=== PATIENT | female | born 1990 | race Caucasian/White ===

== ENCOUNTER → 2017-06-19 16:19 | Outpatient (CLI) | payer OTHER, SELFPAY ==
[2017-06-20 08:46] LABS: Progesterone Level 10.23 ng/mL (See Comment)
== END ==
PROVIDERS: Family Provider Family Medicine; PCP Family Medicine; Visit Provider Obstetrics & Gynecology
DX: N97.0 Female infertility associated with anovulation (principal)
CPT/HCPCS: 84144

== ENCOUNTER → 2017-06-30 09:53 | Outpatient (CLI) | payer OTHER, SELFPAY ==
[2017-06-30 11:36] LABS: hCG Titer Quant., Serum 67 mIU/mL (<9 non-preg)
== END ==
PROVIDERS: Visit Provider Obstetrics & Gynecology
DX: N91.2 Amenorrhea, unspecified (principal)
CPT/HCPCS: 36415; 84702

== ENCOUNTER → 2017-07-02 09:21 | Outpatient (CLI) | payer OTHER, SELFPAY ==
[2017-07-02 10:19] LABS: hCG Titer Quant., Serum 155 mIU/mL (<9 non-preg)
== END ==
PROVIDERS: Visit Provider Obstetrics & Gynecology
DX: N91.2 Amenorrhea, unspecified (principal)
CPT/HCPCS: 36415; 84702

== ENCOUNTER → 2017-07-04 09:44 | Outpatient (CLI) | payer OTHER, SELFPAY ==
[2017-07-04 12:14] LABS: hCG Titer Quant., Serum 321 mIU/mL (<9 non-preg)
== END ==
PROVIDERS: Visit Provider Obstetrics & Gynecology
DX: Z32.01 Encounter for pregnancy test, result positive (principal)
CPT/HCPCS: 36415; 84702

== ENCOUNTER → 2017-07-28 14:20 | Outpatient (CLI) | payer OTHER, SELFPAY ==
[2017-07-28 17:32] LABS: Chlamydia Trachomatis by PCR Negative (Negative); Neisserai gonorrhoeae by PCR Negative (Negative); Probe Check PASS; Sample Adequacy Control PASS; Specimen Processing Control PASS
== END ==
PROVIDERS: Visit Provider Obstetrics & Gynecology
DX: Z11.3 Encounter for screening for infections with a predominantly sexual mode of transmission (principal)
CPT/HCPCS: 87491; 87591

== ENCOUNTER → 2017-08-25 14:56 | Outpatient (CLI) | payer OTHER, SELFPAY ==
[2017-08-25 15:40] LABS: Color, Urine Yellow (Yellow); Glucose, Dipstick Normal (Normal); Ketone-Dipstick Negative (Negative); Leukocyte Esterase-Dipstick 25 /ul (Negative); Nitrite-Dipstick Negative (Negative); Occult Blood-Urine Negative /ul (Negative); Protein-Dipstick Negative (Negative); Urine Bilirubin Dipstick Negative (Negative); Urine Clarity Clear (Clear); Urine Urobilinogen Normal (Normal)
[2017-08-25 15:47] LABS: Absolute Lymphocyte Count 1.93 X10^3/ul (0.83-4.51); Basophil# 0.01 X10^3/uL; Basophil% 0.1 % (0-1); Eosinophil# 0.11 X10^3/uL; Eosinophils% 1.3 % (0-5); Hematocrit 38.3 % (37-47); Hemoglobin 13.1 g/dl (12.0-15.0); Lymphocyte # 1.93 X10^3/ul (4.0); Lymphocyte % 22.5 % (19-41); Mean Corp Hgb Conc 34.2 g/gl (32-36); Mean Corpuscular Hgb 28.4 pg (27.0-32.0); Mean Corpuscular Volume 82.9 fL (81-99); Mean Platelet Vol. 9.2 fl (6.2-12.0); Monocyte% 5.8 % (0-10); Neutrophil # 5.99 X10^3/uL (2.7-7.7); Neutrophil % 69.8 % (47-70); Platelet Count 285 K/mm3 (150-450); RBC Distribution Width CV 12.5 % (11.6-14.6); RBC Distribution Width SD 37.6 fl (35.1-43.9); Red Blood Count 4.62 M/mm3 (4.2-5.4); White Blood Count 8.6 K/mm3 (4.4-11.0)
[2017-08-25 15:49] LABS: POSITIVE COUNT NO; POSITIVE DIFFERENTIAL NO; POSITIVE MORPHOLOGY NO
[2017-08-25 16:16] LABS: Thyroid Stim Hormone (TSH) 0.36 uIU/mL (0.358-3.74)
[2017-08-25 16:23] LABS: Amphetamine Urine VISTA NEGATIVE (<1000 ng/mL); Barbiturate Urine VISTA NEGATIVE (< 200 ng/mL); Benzodiazepine Urine VISTA NEGATIVE (< 200 ng/mL); Cocaine Urine VISTA NEGATIVE (< 300 ng/mL); Ecstacy Urine VISTA NEGATIVE (< 500 ng/mL); Methadone Urine VISTA NEGATIVE (< 300 ng/mL); PCP Urine VISTA NEGATIVE (< 25 ng/mL); THC Urine VISTA NEGATIVE (< 50 ng/mL); Vista UDS pH Range 6
[2017-08-25 17:10] LABS: HIV - WCH Non-Reactive (Nonreactive); Rubella IgG 62.9 IU/mL
[2017-08-27 08:12] LABS: HEPATITIS B SURFACE AG Negative (Negative); Hep C Antibodies <0.1 s/co ratio (0.0-0.9)
[2017-08-29 02:34] LABS: Prenatal RPR NONREACTIVE (NONREACTIVE)
== END ==
PROVIDERS: Visit Provider Obstetrics & Gynecology
DX: Z34.81 Encounter for supervision of other normal pregnancy, first trimester (principal)
CPT/HCPCS: 36415; 80307; 81002; 84443; 85025; 86703; 86762; 86803; 87340

== ENCOUNTER 2017-12-12 15:10 | Outpatient (CLI) | payer OTHER, SELFPAY ==
[2017-12-12 15:31] VITALS: BMI 40.0
--- NOTE | 2017-12-12 23:09 | OB.TRI.NOTE ---
History of Present Illness Date of Service: 12/12/17 Was patient seen by the physician?: No Reason For Visit: MONITORING FOR FALL Date of Service: 12/12/17 Final ЕКАТЕРИНА: 03/12/18 Gestational age: 27 Weeks and 1 Days History of Present Illness: 27+ week intrauterine status post fall at home on her right buttocks. Good movement after the fall. Did not hit the abdomen. Denies any vaginal bleeding or contractions. After several hours had problems with some right lower abdominal discomfort. Allergies codeine Adverse Reaction (Verified 03/24/17 01:50) Other naproxen Adverse Reaction (Verified 03/24/17 01:50) Nausea NST - FHR Rate Baby A Decelerations:: None NST Reactive:: Appropriate for gestational age Uterine Activity:: None Impression/Plan 27 week intrauterine status post fall and monitoring for several hours. Reassuring heart tones. Patient's blood type is B- so RhoGam was given after a maternal hemoglobin screen and antibody screen was drawn. After monitoring no contractions were noted and it was felt it was safe to discharge the patient home. She was instructed to use Tylenol as needed for right round ligament pain.
== END 2017-12-12 18:45 | disposition home or self-care (01) ==
LOC: WPOUT 15:17 → WP 15:17
PROVIDERS: Family Provider Family Medicine; PCP Family Medicine; Visit Provider Obstetrics & Gynecology
DX: O26.892 Other specified pregnancy related conditions, second trimester (principal); Z04.3 Encounter for examination and observation following other accident
CPT/HCPCS: 59025; 59050; 85461; 86850; 86900; 90384; 96372; 99218; G0378; J2790

== ENCOUNTER → 2017-12-17 09:48 | Outpatient (CLI) | payer OTHER, SELFPAY ==
[2017-12-17 10:44] LABS: Hematocrit 36.6 % (37-47); Hemoglobin 12.4 g/dl (12.0-15.0); Mean Corp Hgb Conc 33.9 g/gl (32-36); Mean Corpuscular Volume 85.5 fL (81-99); Mean Platelet Vol. 9.4 fl (6.2-12.0); Platelet Count 239 K/mm3 (150-450); RBC Distribution Width CV 13.1 % (11.6-14.6); RBC Distribution Width SD 40.7 fl (35.1-43.9); Red Blood Count 4.28 M/mm3 (4.2-5.4); White Blood Count 8.5 K/mm3 (4.4-11.0)
[2017-12-17 10:48] LABS: Scan Indicated on CBC? Y/N NO
[2017-12-17 10:55] LABS: Glucose Challenge Gest 1H 50g 136 mg/dL (70-140)
== END ==
PROVIDERS: Visit Provider Obstetrics & Gynecology
DX: Z34.82 Encounter for supervision of other normal pregnancy, second trimester (principal)
CPT/HCPCS: 36415; 82950; 85027

== ENCOUNTER 2018-02-10 07:45 | Outpatient (CLI) | payer OTHER, SELFPAY ==
[2018-02-10 08:23] VITALS: BMI 43.8
[2018-02-10 08:25] LABS: ROM Internal Control Test YES-OK TO RESULT pt. (Internal QC)
[2018-02-10 08:26] LABS: ROM Patient Test Negative (Negative)
--- NOTE | 2018-02-10 13:01 | OB.TRI.NOTE ---
History of Present Illness Date of Service: 02/10/18 Was patient seen by the physician?: Yes Reason For Visit: RULE OUT RUPTURE Date of Service: 02/10/18 Final ЕКАТЕРИНА: 03/10/18 Final ЕКАТЕРИНА Source: US <20 weeks Gestational age: 36 Weeks and 0 Days History of Present Illness: 28 yo female. Called in with ? SROM. presents for evaluation after ? SROM. States some trickling and some cramping. 36 wk. prior C/S. Advised to come in for evaluation Allergies codeine Adverse Reaction (Verified 02/10/18 08:25) Other CONSTIPATION naproxen Adverse Reaction (Verified 02/10/18 08:25) Nausea Physical Exam General: Alert, Oriented x3, Cooperative, No apparent distress HEENT: Atraumatic Abdomen: Soft, Gravid - ROM test negative. NST - FHR Rate Baby A Baseline: 130-140 very active FM. Intermittent tracing 2/2 movement. Variability:: Moderate Accelerations:: 15 x 15 Decelerations:: None NST Reactive:: Yes, Appropriate for gestational age FHR Category:: Category I Uterine Activity:: No UCs noted. Impression/Plan 36 wk false labor home. Keep next PNV as planned
== END 2018-02-10 08:40 | disposition home or self-care (01) ==
LOC: WPOUT 07:49 → WP 07:49
PROVIDERS: Family Provider Family Medicine; PCP Family Medicine; Visit Provider Obstetrics & Gynecology
DX: O47.03 False labor before 37 completed weeks of gestation, third trimester (principal); Z3A.36 36 weeks gestation of pregnancy
CPT/HCPCS: 59025; 59050; 84112; 99218; G0378

== ENCOUNTER → 2018-02-18 16:51 | Outpatient (CLI) | payer OTHER, SELFPAY ==
[2018-02-18 17:20] LABS: International Normalized Ratio 0.9; Prothrombin Time (Protime)PT. 12.4 SECONDS (11.7-14.9)
[2018-02-18 17:21] LABS: Partial Thromboplast Time 25.8 Seconds (24.1-36.2)
[2018-02-18 17:24] LABS: AST(SGOT) 14 U/L (15-37); Alanine Aminotransfer ALT/SGPT 14 U/L (13-56); Creatinine, Serum 0.71 mg/dL (0.55-1.02); EST Glomerular Filtration Rate 103 mL/min (>60); Est Glom Filt Rate - Afr Amer 124 mL/min (>60); Uric Acid 2.2 mg/dL (2.6-6.0)
[2018-02-18 17:41] LABS: Hematocrit 38.8 % (37-47); Hemoglobin 13.1 g/dl (12.0-15.0); Mean Corp Hgb Conc 33.8 g/gl (32-36); Mean Corpuscular Hgb 28.5 pg (27.0-32.0); Mean Corpuscular Volume 84.5 fL (81-99); Mean Platelet Vol. 10.6 fl (6.2-12.0); Platelet Count 239 K/mm3 (150-450); RBC Distribution Width CV 13.4 % (11.6-14.6); RBC Distribution Width SD 40.8 fl (35.1-43.9); Red Blood Count 4.59 M/mm3 (4.2-5.4); White Blood Count 8.7 K/mm3 (4.4-11.0)
[2018-02-18 18:05] LABS: Scan Indicated on CBC? Y/N NO
[2018-02-18 20:22] LABS: Group B Strep DNA By PCR Negative (Negative); Internal Control PASS; Probe Check PASS; Specimen Processing Control PASS
== END ==
PROVIDERS: Visit Provider Obstetrics & Gynecology
DX: O13.9 Gestational [pregnancy-induced] hypertension without significant proteinuria, unspecified trimester (principal); Z36.85 Encounter for antenatal screening for Streptococcus B
CPT/HCPCS: 36415; 82565; 84450; 84460; 84550; 85027; 85610; 85730; 87081; 87653

== ENCOUNTER 2018-02-23 18:25 | Inpatient (IN) | payer OTHER, SELFPAY ==
[2018-02-23] VITALS (10 sets, daily range): BP systolic 111–149; BP diastolic 48–88; PULSE 58–78; RESP 12–19; TEMP 35.9–36.4; O2SAT 95–100; BMI 45.1
[2018-02-23] MEDS: Lactated Ringers 1,000 ML 100 ML IV ×2 (17:00→21:40)
[2018-02-23] MEDS: Lactated Ringers 1,000 ML 999 ML IV (18:30)
[2018-02-23 18:43] LABS: Absolute Lymphocyte Count 2.11 X10^3/ul (0.83-4.51); Absolute Neutrophil Count 6.1 X10^3/uL (2.0-7.7); Basophil# 0.02 X10^3/uL; Basophil% 0.2 % (0-1); Eosinophil# 0.04 X10^3/uL; Eosinophils% 0.4 % (0-5); Hematocrit 39.7 % (37-47); Hemoglobin 13.4 g/dl (12.0-15.0); Lymphocyte # 2.11 X10^3/ul (4.0); Lymphocyte % 23.4 % (19-41); Mean Corp Hgb Conc 33.8 g/gl (32-36); Mean Corpuscular Hgb 28.6 pg (27.0-32.0); Mean Corpuscular Volume 84.6 fL (81-99); Mean Platelet Vol. 10.9 fl (6.2-12.0); Monocyte# 0.75 X10^3/uL; Monocyte% 8.3 % (0-10); Neutrophil # 6.07 X10^3/uL (2.7-7.7); Neutrophil % 67.5 % (47-70); POSITIVE COUNT NO; POSITIVE DIFFERENTIAL NO; POSITIVE MORPHOLOGY NO; Platelet Count 244 K/mm3 (150-450); RBC Distribution Width CV 13.5 % (11.6-14.6); RBC Distribution Width SD 40.9 fl (35.1-43.9); Red Blood Count 4.69 M/mm3 (4.2-5.4)
[2018-02-23] MEDS: Sodium Citrate/Citric Acid 30 ML UDC PO (18:50)
[2018-02-23] MEDS: Oxytocin 30 units/NS 500 ml 30 UNITS/500 ML IV.SOLN 167 UNITS IV (19:39)
--- NOTE | 2018-02-23 20:18 | PCM.OP.BLANK ---
Operative Report Date of Procedure: 02/23/18 Surgeon: Ankit Christensen MD, FACOG Licensed Vocational Nurse: ISAC Lew Anesthesia: Salbador Herman CRNA Anesthesia: Spinal with Duramorph Pre-op Diagnosis: Prior Section, Nonreassuring Heart Tones, Polyhydramnios, Suspected Macrosomia Post-Op Diagnosis: Prior Section, Nonreassuring Heart Tones, Polyhydramnios, Macrosomia Procedure: Repeat Low Transverse Cervical Caesarean Section Findings: Viable male with Apgars of 6/9 in occiput anterior presentation with copious amounts of clear amniotic fluid and normal three-vessel placenta. Baby weighed 9 pounds 12 ounces. Indication: This is a 28-year-old who presents for her second at 37weeks 4 days weeks gestation. care has been eventful for polyhydramnios and large for gestational age baby. Recent nonstress testing has been nonreassuring. In fact, this evening we were unable to do a contraction stress test due to periods of minimal variability and suspected late decelerations. Given this it was decided to proceed with section this evening. The patient has been counseled regarding the risk and indications of this procedure including the possibility of bleeding infection and injury to surrounding structures such as bowel bladder. All questions were answered. Procedure: Patient was taken to the operating room where after spinal anesthesia was placed, the patient was prepped and draped in usual sterile fashion and a Vogel catheter was placed. The abdomen was entered through the patient's prior Pfannenstiel incision and peritoneum was entered bluntly. After developing a bladder flap on the lower uterine segment a low transverse incision was made on the uterus and head was easily delivered onto the operative field the nose mouth and oropharynx were bulb suctioned. Subsequently a viable male was born with Apgars of 6/9. The was noted to cry move all extremities vigorously on the operative field. The umbilical cord was doubly clamped and ligated and handed to the nursery personnel including Dr. Mullins from Pediatrics who was present for the delivery. Placenta was delivered and noted to be 3 vessels and normal. Uterus was exteriorized and remaining placental tissue was removed. The uterus was then closed in 2 layers first with running locked 0 Vicryl suture followed by a second imbricating layer with 0 Vicryl suture. 0 Vicryl suture was then used in a horizontal mattress interrupted fashion to affect final hemostasis of the uterine incision line. Normal fallopian tubes and ovaries were visualized and the uterus was returned to the pelvis. Hemostasis was noted and rectus abdominis muscles were reapproximated in the midline with interrupted Number 0 Vicryl suture in a horizontal mattress fashion. Fascia was closed with running Number 1 PDS Strata fix suture. Subcutaneous tissue was irrigated with copious amouts of saline solution and then closed with running 3-0 Vicryl suture. Skin was closed with 4-0 monocryl suture in a running subcuticular fashion. Steri strips, telfa, and tape were placed across the incision. The patient tolerated the procedure well and was taken to the recovery room in satisfactory condition. Sponge, needle, and instrument counts were all reportedly correct. EBL was less than 500 cc. Ancef 3 g IV was given prior to the procedure. Specimen to Pathology: None Complications: None
--- NOTE | 2018-02-23 20:25 | DCINST_ITS ---
Discharge Diet: No Restrictions Discharge Activity: May not drive while taking narcotic pain medications., May Shower, May Take a Tub Bath May resume sexual activity in: 4-6 weeks Lifting Restrictions: 20 pounds Additional Activity Instructions:: Nothing in the vagina for 4-6 weeks. You may return to work/school in 6 weeks. Call your doctor if your incision/area has: Continuous Slow Oozing, Sudden Increased Bleeding, Increased Pain/ Swelling, Increased Redness, Foul Smelling Discharge Call your doctor if you observe: Fever of 101 or Higher, Inability to urinate, Inability to have a bowel movement, Using more than one pad per hour Additional Instructions: If you experience any of the following, contact your healthcare provider. * Bleeding that soaks a pad every hour for 2 hours * Unrelieved incision or abdominal pain * Swelling, redness, discharge or bleeding from your incision or episiotomy site * Your incision begins to separate * Problems urinating (including inability to urinate or burning while urinating). * Visual changes * Severe headache * Flu-like symptoms * Pain or redness in one of both of your breasts * Pain, warmth, tenderness or swelling in your legs, especially the calf area * Frequent nausea and vomiting * Symptoms of depression or anxiety If you experience any of the following, call 911 or go to the nearest Emergency Room. * Chest pain * Problems breathing * Seizure activity * Partial or complete paralysis of a body part, slurred speech, weakness or drooping of the face, or a sudden inability to walk or hold your balance Allergies/Adverse Reactions: Allergies codeine Adverse Reaction (Verified 02/23/18 16:50) Other CONSTIPATION naproxen Adverse Reaction (Verified 02/23/18 16:50) Nausea Medications to take at Discharge Vits [Prenatabs FA ] 1 tablet PO DAILY 04/20/13 Docusate Sodium [Colace] 100 mg PO BID PRN PRN #60 cap 02/23/18 Oxycodone [Oxyir] 5 mg PO Q6H PRN PRN 7 Days #20 tab 02/23/18 The following prescriptions were given: Oxycodone [Oxyir] 5 mg PO Q6H PRN PRN 7 Days #20 tab PRN Reason: Severe Pain (-03/04) Docusate Sodium [Colace] 100 mg PO BID PRN PRN #60 cap PRN Reason: Constipation Follow-Up: Call to make an appointment with your doctor for an incision check in 1-2 weeks. You will also need a 6 week post- follow up appointment. Test results from this visit will be discussed in further detail at your follow-up appointment, if applicable. Please Follow Up With: Ankit Christensen MD - [phone] When: Call to make an appointment for an incision check in 2 weeks.
[2018-02-24] VITALS (11 sets, daily range): BP systolic 106–129; BP diastolic 60–74; PULSE 61–88; RESP 14–20; TEMP 36.2–36.9; O2SAT 96–100
[2018-02-24] MEDS: Ketorolac 30 MG/ML Syringe IV ×4 (02:40→20:04)
--- NOTE | 2018-02-24 03:05 | NURSING ---
0300 Called JW to update him on patient's HR dropping to 40's sporadically throughout recovery period; this RN informed him that there are no apparent triggers and that her HR has dropped when she is alert and when she is resting, that it will remain in 40's for anywhere from 5-30 seconds and that patient is asymptomatic other then feeling it pulse in my neck; bleeding and fundus is appropriate, other VS WNL and patient denies any other symptoms; JW stated to continue to monitor and that it can be a side effect of duramorph; JW denied any further orders at this time and this RN verbalized understanding.
[2018-02-24] MEDS: Cefazolin 1 GM/50 ML BAG IV ×2 (04:25→12:00)
[2018-02-24 05:30] LABS: Hematocrit 35.1 % (37-47); Hemoglobin 11.9 g/dl (12.0-15.0); Mean Corp Hgb Conc 33.9 g/gl (32-36); Mean Corpuscular Hgb 28.8 pg (27.0-32.0); Mean Platelet Vol. 10.4 fl (6.2-12.0); Platelet Count 202 K/mm3 (150-450); RBC Distribution Width CV 13.3 % (11.6-14.6); RBC Distribution Width SD 40.5 fl (35.1-43.9); Red Blood Count 4.13 M/mm3 (4.2-5.4); White Blood Count 12.9 K/mm3 (4.4-11.0)
[2018-02-24 05:36] LABS: Scan Indicated on CBC? Y/N NO
--- NOTE | 2018-02-24 08:23 | PCM.PN.OB ---
Subjective: POD#1 Repeat C/S nonreassuring FHT Doing well baby 9 # 12 oz. States pain control ok. no concerns voiced. - Physical Exam General: Alert, Oriented x3, Cooperative, No apparent distress HEENT: Atraumatic Neck: Supple Abdomen: Soft - Fundus firm NT at 1-2 cm inferior to umbilicus Skin: Incision - CDI. Dressing intact. Some faint erythema superior to incision extending up to umbilicus in pattern distribution ? due to retraction straps used / tape. Neurological: Cranial nerves II-XII grossly intact Psych/Mental Status: Normal Affect Vital Signs Temp Pulse Resp BP Pulse Ox 98.1 F 65 18 117/69 98 02/24/18 04:45 02/24/18 06:16 02/24/18 06:16 02/24/18 04:45 02/24/18 06:16 Oxygen Delivery Method Room Air Weight: 142.7 kg Body Mass Index (BMI) 45.1 Intake and Output for Last 24 Hours 02/22/18 02/23/18 02/24/18 23:59 23:59 23:59 Intake Total 3329 / 3329 2053 / 2053 Output Total 100 / 100 600 / 600 Balance 3229 / 3229 1453 / 1453 Laboratory Tests Past 24 Hrs 02/23/18 02/23/18 02/24/18 17:00 17:00 05:15 WBC 9.0 12.9 H RBC 4.69 4.13 L Hgb 13.4 11.9 L Hct 39.7 35.1 L MCV 84.6 85.0 MCH 28.6 28.8 MCHC 33.8 33.9 RDW 13.5 13.3 RDW Differential 40.9 40.5 Plt Count 244 202 MPV 10.9 10.4 Immature Gran % (Auto) 0.200 Neut % (Auto) 67.5 Lymph % (Auto) 23.4 [place] % (Auto) 8.3 Eos % (Auto) 0.4 Baso % (Auto) 0.2 Absolute Neuts (auto) 6.1 Absolute Lymphs (auto) 2.11 Total Counted Not Reportable Blood Type B NEGATIVE Antibody Screen NEGATIVE Medical Necessity - Tobacco Use Smoking Status: Never smoker Assessment/Plan POD#1 Repeat C/S Stable postop. Inc diet and activity as tolerated. May shower. D/C lima for voiding trial later today. S/L IV for continued Toradol. Continue care.
[2018-02-24] MEDS: Senna/Docusate Sodium 1 Tablet PO (08:31)
[2018-02-24] MEDS: 0.9% Saline Lock 10 ML Syringe IV ×2 (15:22→20:04)
[2018-02-25] MEDS: Ketorolac 30 MG/ML Syringe IV ×3 (02:30→14:00)
[2018-02-25] MEDS: 0.9% Saline Lock 10 ML Syringe IV ×3 (02:31→14:00)
[2018-02-25 04:30] VITALS: BP 121/72; PULSE 81; RESP 15; TEMP 36.7; O2SAT 97
[2018-02-25 08:10] VITALS: BP 132/77; PULSE 77; RESP 16; TEMP 36.4; O2SAT 97
--- NOTE | 2018-02-25 09:34 | PN.OBGYN_ITS ---
Subjective: Patient without complaints. Tolerating diet well. Positive flatus. Breast- feeding going well. Baby's blood sugars better controlled today. - Physical Exam Vital Signs Temp Pulse Resp BP Pulse Ox 97.5 F L 77 16 132/77 H 97 02/25/18 08:10 02/25/18 08:10 02/25/18 08:10 02/25/18 08:10 02/25/18 08:10 Oxygen Delivery Method Room Air Weight: 314 lb 9.594 oz Body Mass Index (BMI) 45.1 Intake and Output for Last 24 Hours 02/23/18 02/24/18 02/25/18 23:59 23:59 23:59 Intake Total 3329 / 3329 3 / 205 Output Total 100 / 100 2600 / 2600 Balance 3229 / 3229 -547 / -547 Wound is clean, dry, intact. Good urine output. Medical Necessity - Tobacco Use Smoking Status: Never smoker Assessment/Plan Doing well. Continuing present care.
[2018-02-25] MEDS: Senna/Docusate Sodium 1 Tablet PO (10:17)
[2018-02-25 16:15] VITALS: BP 128/77; PULSE 88; RESP 16; TEMP 36.4; O2SAT 98
[2018-02-25 20:01] VITALS: BP 117/75; PULSE 84; RESP 16; TEMP 36.9; O2SAT 98
[2018-02-25] MEDS: Ibuprofen 600 MG Tablet PO (20:20)
[2018-02-25] MEDS: Acetaminophen 500 MG Tablet 1000 MG PO (21:52)
[2018-02-26 01:30] VITALS: BP 133/74; PULSE 74; RESP 16; TEMP 36.9; O2SAT 97
[2018-02-26] MEDS: Ibuprofen 600 MG Tablet PO ×3 (02:31→15:46)
[2018-02-26] MEDS: Acetaminophen 500 MG Tablet 1000 MG PO ×2 (06:29→14:20)
[2018-02-26 08:01] VITALS: BP 127/71; PULSE 68; RESP 15; TEMP 36.4
--- NOTE | 2018-02-26 09:12 | PN.OBGYN_ITS ---
Subjective: Patient without complaints. Tolerating diet well. Positive flatus. Breast- feeding going well but is pumping. Baby's blood sugars have stabilized. - Physical Exam Vital Signs Temp Pulse Resp BP Pulse Ox 97.6 F L 68 15 127/71 H 97 02/26/18 08:01 02/26/18 08:01 02/26/18 08:01 02/26/18 08:01 02/26/18 01:30 Oxygen Delivery Method Room Air Weight: 314 lb 9.594 oz Body Mass Index (BMI) 45.1 Intake and Output for Last 24 Hours 02/24/18 02/25/18 02/26/18 23:59 23:59 23:59 Intake Total 2052 / 2052 Output Total 2600 / 2600 Balance -547 / -547 Medical Necessity - Tobacco Use Smoking Status: Never smoker Assessment/Plan Doing well postoperative day #2 status post repeat . Continuing present care. Anticipate release tomorrow.
[2018-02-26 14:00] VITALS: BP 129/81; PULSE 65; RESP 13; TEMP 36.4
--- NOTE | 2018-03-03 09:15 | PCM.DC.BLA ---
Discharge Summary Date of Admission: 02/23/18 Date of Discharge: 02/26/18 Summary: Admitting Diagnosis: Prior Section, Nonreassuring Heart Tones, Polyhydramnios, Suspected Macrosomia Discharge Diagnosis: Prior Section, Nonreassuring Heart Tones, Polyhydramnios, Macrosomia Procedure: Repeat Low Transverse Cervical Caesarean Section Findings: Viable male infant with Apgars of 6/9 in occiput anterior presentation with copious amounts of clear amniotic fluid and normal three-vessel placenta. Baby weighed 9 pounds 12 ounces. HPI: This is a 28-year-old who presented for her second at 37weeks 4 days weeks gestation. care has been eventful except for for polyhydramnios and large for gestational age baby. Recent nonstress testing has been nonreassuring. In fact, we were unable to do a contraction stress test due to periods of minimal variability and suspected late decelerations. Given this it was decided to proceed with section. Hospital Course: Pt was admitted and had a repeat . Post operatively the patient did well demonstrating stable hgb and bowel function by POD no 3 at which time it was felt she was ready for discharge. Homegoing Instructions: The patient was instructed not to drive for several days, not to put anything in the vagina for 4 weeks and to call the office for an appointment in 2 and 6 weeks. She was given prescriptions for Oxycodone and Colace to be used as needed.
== END 2018-02-26 18:00 | disposition home or self-care (01) | DRG 788 ==
LOC: WPOUT 18:42
PROVIDERS: Admitting Provider Obstetrics & Gynecology; Referring Provider Obstetrics & Gynecology; Visit Provider Obstetrics & Gynecology
DX: O40.3XX0 Polyhydramnios, third trimester, not applicable or unspecified (principal); O34.211 Maternal care for low transverse scar from previous cesarean delivery; O36.63X0 Maternal care for excessive fetal growth, third trimester, not applicable or unspecified; O76 Abnormality in fetal heart rate and rhythm complicating labor and delivery; Z3A.37 37 weeks gestation of pregnancy; Z37.0 Single live birth
CPT/HCPCS: 59025; 59050; 85025; 85027; 86850; 86900; 99218; J7120; A4216; G0378; J2405

== ENCOUNTER 2018-03-05 14:15 | Outpatient (CLI) | payer OTHER, SELFPAY | END 2018-03-05 15:15 | disposition home or self-care (01) | LOC: WPOUT 14:18 → WP 14:20 | PROVIDERS: Referring Provider Obstetrics & Gynecology; Visit Provider Obstetrics & Gynecology | DX: Z39.1 Encounter for care and examination of lactating mother (principal) | CPT/HCPCS: 96152 ==

== ENCOUNTER 2018-03-26 22:49 | Inpatient (IN) | payer OTHER, SELFPAY ==
[2018-03-26 22:51] VITALS: BP 145/85; PULSE 59; RESP 14; TEMP 36.2; O2SAT 97; BMI 40.4
--- NOTE | 2018-03-26 23:16 | US_ITS ---
None TECHNIQUE: Duarte scale and color doppler imaging was performed of the gallbladder. COMPARISON: None FINDINGS: The gallbladder is adequately distended and shows dependent stone gravel with posterior acoustical shadowing. Mild diffuse gallbladder wall thickening measuring 5 mm together with pericholecystic edema. Positive sonographic Leyva's sign. The common duct measures 5 mm in diameter which is normal. No intrahepatic biliary dilatation. Visualized portions of the liver are unremarkable. No free fluid. The right kidney is visualized and is negative. No hydronephrosis. US/Gallbladder IMPRESSION: 1. Sonographic findings in keeping with acute cholecystitis. Positive sonographic Leyva sign. Correlate clinically. 2. Report telephoned to the referring service upon exam completion. at 0014 Reported and signed by: Khadar Santana MD N.B. : The above information has been verbally conveyed by Khadar Santana to Tanesha Tomlinson RN, on 03/27/2018 22:28:54 (ET). Electronically Signed: Khadar Santana, at 0:12 EDT Tel , Service support ,
[2018-03-26] MEDS: Ketorolac 30 MG/ML Syringe 15 MG IV (23:22)
[2018-03-26 23:24] LABS: Absolute Lymphocyte Count 2.77 X10^3/ul (0.83-4.51); Absolute Neutrophil Count 5.1 X10^3/uL (2.0-7.7); Basophil# 0.02 X10^3/uL; Basophil% 0.2 % (0-1); Eosinophils% 4.6 % (0-5); Hematocrit 45.4 % (37-47); Hemoglobin 15.6 g/dl (12.0-15.0); Lymphocyte # 2.77 X10^3/ul (4.0); Lymphocyte % 31.7 % (19-41); Mean Corp Hgb Conc 34.4 g/gl (32-36); Mean Corpuscular Hgb 28.5 pg (27.0-32.0); Mean Platelet Vol. 9.4 fl (6.2-12.0); Monocyte# 0.48 X10^3/uL; Monocyte% 5.5 % (0-10); Neutrophil # 5.06 X10^3/uL (2.7-7.7); Neutrophil % 57.9 % (47-70); POSITIVE COUNT NO; POSITIVE DIFFERENTIAL NO; POSITIVE MORPHOLOGY NO; Platelet Count 216 K/mm3 (150-450); RBC Distribution Width CV 12.5 % (11.6-14.6); RBC Distribution Width SD 37.3 fl (35.1-43.9); Red Blood Count 5.47 M/mm3 (4.2-5.4); White Blood Count 8.7 K/mm3 (4.4-11.0)
--- NOTE | 2018-03-26 23:41 | ED.VISSUMM ---
- ER Visit Summary Date of Service: 03/26/18 Chief Complaint: Right upper quadrant abdominal pain radiating to the back with nausea History of Present Illness: The patient is a 28 F who presents with right upper quadrant pain rating to her back with nausea that started after dinner. She had ham, beans and corn bread with butter. She had a similar episode on Friday after having pork chops. There is no known family history cholelithiasis. She states she was told her gallbladder ultrasound many years ago revealed thickening of the gallbladder wall no stones were noted. She is status post delivery 1 month ago. She denies fever, chills night sweats. She denies any ocular, visual auditory symptoms. She denies cardiac or respiratory symptoms. She denies dysuria, frequency, urgency or hematuria. She denies history of renal urolithiasis. She has no other complaints please read written note for complete detail Physical Examination: Vital signs noted and blood pressure is elevated 145/85. She is not febrile. BMI is 40. Head is atraumatic normocephalic. Pupils are equal round reactive. Extraocular muscles are intact. TMs are pearly white with landmarks noted. Nares patent with no drainage. Posterior pharynx without erythema or exudate. Uvula is midline. There is no dysphonia or dysphasia. Trachea is midline. There is no stridor with auscultation of the neck. Heart is regular without murmur, gallop or rub. S1 and S2 are normal. Lungs are clear to auscultation with good movement of air bilaterally. Abdomen is soft with tenderness in the epigastric and right upper quadrant with a clinical Leyva sign. Bowel sounds are slightly diminished. There is no CVA tenderness. There is no rash or skin lesions noted. Neuro exam is nonfocal. Please read written note for complete detail. Test Results: White count is 8.7 thousand and 58 segs no bands 31 lymphs. Hepatic and lipase are pending. Ultrasound right upper quadrant interpreted by me as multiple gallstones, thickening of the gallbladder wall at 0.5 cm and pericholecystic fluid. Common bile duct is normal. Emergency Department Course and Treatment: IV was established and patient was treated with IV Toradol and Zofran. Treatment Plan: Dr. Mcnulty was contacted since patient has not seen a surgeon in the past. She accepted patient and is giving nurse orders for admission Disposition: [facility] Impression: Acute cholecystitis This note was generated with eBuddy dictation software. It may contain incorrect words, spelling, and punctuation that were not noted in review of the chart prior to signing ED Disposition - Plan for ED Patient: Chief Complaint: Abd Pain Referrals: Alberto Disla MD [Primary Care Provider] -
[2018-03-26 23:53] LABS: AST(SGOT) 46 U/L (15-37); Alanine Aminotransfer ALT/SGPT 44 U/L (13-56); Albumin, Serum 3.6 g/dL (3.2-5.0); Alkaline Phosphatase 83 U/L (45-117); Bilirubin, Direct 0.16 mg/dL (0.00-0.30); Globulin 3.7 g/dL (2.2-4.2); Protein, Total 7.3 g/dL (6.4-8.2)
[2018-03-27] VITALS (12 sets, daily range): BP systolic 126–145; BP diastolic 70–96; PULSE 46–88; RESP 12–18; TEMP 36.2–36.9; O2SAT 90–100; BMI 40.4
[2018-03-27] MEDS: Lactated Ringers 1,000 ML 100 ML IV (01:04)
--- NOTE | 2018-03-27 07:19 | PCM.HP.BLA ---
History and Physical Date of Admission: 03/27/18 Chief Complaint: abdominal pain History of Present Illness: 28 y/o WF newly post one month presents with abdominal pain yesterday. Had similar episode 4-5 days previous to presentation. Denies icterus, jaundice Denies fevers/chills Found to have elevated lipase - 49940, normal WBC no left shift, afebrile US in ED (not read by radiologist yet) but has multiple stones noted, appears to be normal sized CBD. Patient states that she feels much improved this morning. Presently still breast feeding. Past Medical History: obesity Past Surgical History: Tonsillectomy csections left foot surgery x 2 Medications: multivitamins Allergies: codeine causes severe constipation, naproxen Social history: TOB use denies Lives with and family Review of Systems: General - denies fevers, denies weight loss, denies anorexia Cardiovascular denies chest pain, denies history of heart attack Pulmonary denies shortness of breath, denies coughing up blood Gastrointestinal as per HPI, denies blood in stools Neurological denies numbness/weakness of extremities, denies seizures Genitourinary denies burning with urination, denies blood in urine Hematological denies spontaneous/prolonged bleeding Skin denies open non healing wounds Musculoskeletal had left foot fracture in past Endocrine denies diabetes Psychological denies hallucinations Physical examination: Vital signs Temp 97.1F HR 59 BP 145/65 RR 16 General WD/WN WF in no apparent distress, alert and oriented, not septic appearing HEENT Normocephalic. EOM intact with sclera clear and no icterus noted. Neck is supple with no jugular venous distention noted. Trachea is midline. Lungs normal breath sounds in all lung bernal. No rales/rhonchi/wheezing noted. No labored breathing noted, such as retractions. No cough heard. Heart normal S1 and S2 auscultated. No rubs/clicks/murmurs noted. Abdomen soft and benign but tender in the right upper quadrant with Leyva's sign, hypoactive bowel sounds, difficult to determine if any masses due to body habitus Extremities no calf tenderness noted. No pitting edema noted. Genitourinary/Rectal deferred Skin normal skin integrity. Neurological non focal. Psychological normal affect, patient is calm and appropriate Impression: acute cholecystitis by clinical examination with cholelithiasis, pancreatitis Discussion/Plan: I have discussed the above with the patient. I have recommended laparoscopic cholecystectomy to be done today, will hydrate and recheck serum lipase. Since patient states that she feels much better, suspect that she passed stone and stones appear small on the gallbladder US. I have explained the procedure to the patient. I have counseled the patient as to the risks of the procedure, including but not limited to: infection, bleeding, injury to any blood vessels/nerves, scar tissue, injury to any intrabdominal organs, injury to kidney/ureters, injury to bowel/bladder, injury to the common bile duct/biliary tree, bile leakage, intraabdominal abscess/bleeding, hernias at incisional sites, wound infections, possible open procedure, complications of anesthesia, postoperative pneumonia/cardiac problems/blood clots etc. the patient understands. She agrees to proceed. I have answered all questions to the patient?s satisfaction and the patient has no further questions.
[2018-03-27 08:18] LABS: Internal QC Validated? YES +Cl - CLEAR BKGD; Pregnancy, Urine Negative Negative
--- NOTE | 2018-03-27 09:10 | GALL_PTH ---
PATIENT: LILIANE GREENFIELD LOC: MS3 U#:[id number] AGE/SX: 28/F ROOM: MS316 RE03/27/[address]: Dr. Aiyana Mcnulty MD : [id number] BED: 1 DIS: 03/28/2018 SPEC #: [id number] RECD: 03/30/18 09:19 STATUS: LUDWIN REQ #: [id number] NKECHI: 03/27/18 09:[address]: Aiyana Mcnulty DEPT: SURGICAL PATHOLOGY RECD BY: Benjamin Hancock ENTERED: 03/30/18 11:43 SP TYPE: SYDNEY TIDWELL DR: Dr. Alberto Disla MD Tissues: Gallbladder, NOS Procedures: Surgery Specimen Level III HEADER OPERATION: Laparoscopic cholecystectomy with intraoperative cholangiogram PRE-OP DIAGNOSIS: Acute cholecystitis TISSUE SUBMITTED: Gallbladder MICROSCOPIC DIAGNOSIS Gallbladder: Chronic cholecystitis, cholelithiasis and cholesterolosis. SJ:mitch 03/31/18 MICROSCOPIC DESCRIPTION Slides are reviewed. GROSS DESCRIPTION Received is one container labeled with the patient's name and designated gallbladder. The specimen consists of a gallbladder measuring 9 cm in length and up to 3 cm in diameter. The external surface is pink-peña, smooth and glistening for the most part. Focally it is granular, hemorrhagic and contains cautery artifact. The gallbladder contains green-yellow mucoid bile and multiple yellow mulberry stones measuring in aggregate 3 x 3 x 1 cm and 0.1 to 0.2 cm in greatest dimension. The mucosa also shows several yellowish streaks consistent with cholesterolosis. The mucosa is bile-stained and without any mass lesions. The gallbladder wall measures up to 0.3 cm in thickness. Transport Aide sections from the gallbladder and the cystic duct are submitted in one cassette. / SJ:mitch 03/30/18 TC:3 CPT: 84010
[2018-03-27] MEDS: Lactated Ringers 1,000 ML 150 ML IV ×3 (10:26→21:53)
--- NOTE | 2018-03-27 12:42 | CASEMGMT ---
RN CM Assessment Introduced role of CM to patient in room. Pt presented to ER with abd pain, one month post partem. Now with acute cholecystitis, pancreatitis. PCP: Dr. Disla [facility] Prescription coverage: yes Living Arrangements: Lives @ home with her . Baby is being cared for by her mother. Pt drives, DME: none Pt states she was doing well @ home, no needs. Baby is being cared for by her mother. Pt drives, able to f/u with physicians DC PLAN: Home, no needs identified.
[2018-03-27 13:08] LABS: Lipase 2335 U/L (73-393)
--- NOTE | 2018-03-27 13:41 | NURSING ---
REPORT CALLED TO ALLEN TOVAR.
--- NOTE | 2018-03-27 15:12 | PCM.IMDPSTOP ---
Immediate Post-Op Note Date of Procedure: 03/27/18 Primary Surgeon/Physician: Aiyana Mcnulty advertising copywriter: Pooja Ross Pre-Operative Diagnosis: cholelithiasis, acute cholecystitis, pancreatitis (gallstone) Post-Operative Diagnosis: acute on chronic cholecystitis with cholelithiasis Surgery/Procedure Performed:: laparoscopic cholecystectomy Description of Surgical Findings:: cystic duct densely adhesed to cystic artery - could not separate thus did not do cholangiogram as planned, acute on chronic cholecystitis, small gallstones Estimated Blood Loss: < 20 ml Specimen's removed: gallbladder and contents Type of Anesthesia:: General ASA Class: ASA3 Severe Disease - Admit VTE Documentation VTE Present on Admission: Yes VTE Mechan Device Prophylaxis: SCD's
--- NOTE | 2018-03-27 15:13 | PCM.DC.GB ---
Discharge Diet: No Restrictions - avoid carbonated beverages for a few days, drink plenty of fluids Discharge Activity: Return to Normal Activity, May not drive while taking narcotic pain medications. Lifting Restrictions: no lifting greater than 20 pounds for 2 weeks Call your doctor if your incision/area has: Continuous Slow Oozing, Foul Smelling Discharge Call your doctor if you observe: Fever of 101 or Higher Additional Dressing/Incision Instructions:: Leave dressings in place. May get wet in shower. Do not soak - no tub baths/swimming Additional Instructions: for pain control - can alternate between ibuprofen and acetominophen, that is, take 600 mg ibuprofen, then in 3 hours take 650 - 1000 mg acetominophen, then in 3 hours take 600 mg of ibuprofen, etc. - for the first 1-2 days, and take norco for severe pain, try to avoid breast feeding within 1-2 hours of taking norco Allergies/Adverse Reactions: Allergies codeine Adverse Reaction (Verified 03/26/18 22:50) Other CONSTIPATION naproxen Adverse Reaction (Verified 03/26/18 22:50) Nausea Medications to take at Discharge Vits [Prenatabs FA ] 1 tablet PO DAILY 04/20/13 Hydrocodone/Acetaminophen [Hodge 5-325 Tablet] 1 ea PO Q8H PRN PRN 4 Days #10 tab 03/27/18 The following prescriptions were given: Hydrocodone/Acetaminophen [Hodge 5-325 Tablet] 1 ea PO Q8H PRN PRN 4 Days #10 tab PRN Reason: Severe Pain (6-03/04) Primary Care Physician: Alberto Disla MD [Primary Care Provider] - Test Results: Test results from this visit will be discussed in further detail at your follow-up appointment, if applicable. Please Follow Up With: Aiyana Mcnulty MD - call When: to be seen in 7-10 days, please call for date and time, thank you
[2018-03-27] MEDS: Bupiv/Epi 0.5% Mpf 30 ML Vial (16:22)
--- NOTE | 2018-03-27 16:27 | OP.PCM_ITS ---
Report of Operation Date of Procedure: 03/27/18 Pre-Operative Diagnosis: cholelithiasis, acute cholecystitis, pancreatitis (gallstone) Post-Operative Diagnosis: acute on chronic cholecystitis with cholelithiasis Surgery/Procedure Performed:: laparoscopic cholecystectomy Description of Surgical Findings:: cystic duct densely adhesed to cystic artery - could not separate thus did not do cholangiogram as planned, acute on chronic cholecystitis, small gallstones data collection associate: Pooja Ross Type of Anesthesia:: General Anesthesiologist: Rigo Zimmer Specimen's removed: gallbladder and contents Estimated Blood Loss (mL): < 20 ml Fluids Replaced: 800 ml RL Description of Procedure: After informed consent was given, the patient was brought to the Operating Room and placed in the supine position. Appropriate time out protocol was followed. The patient was then placed under general endotracheal anesthesia. The abdomen was then prepped with a sterile surgical skin preparation and sterile surgical drapes were placed. An area of skin superior to the umbilicus was grasped with penetrating clamps and the skin and subcutaneous tissues were infiltrated with 0.5% marcaine with epinephrine. A skin incision was then made with a 15 blade scalpel. The anterior abdominal wall was elevated and a Veress needle was carefully inserted into the intraabdominal cavity. It was checked to be in the proper position with a normal saline drop test. A CO2 pneumoperitoneum was then created. Once this was achieved, then the Veress needle was removed and an 11mm trocar was placed in its stead. A 10mm laparoscope was then inserted into the trocar and careful attention was directed to the intraabdominal contents. There was no evidence of injury to any intraabdominal organs from insertion of the Veress needle or the trocar. Under direct visualization, a 5mm subxiphoid trocar and two lateral 5mm right subcostal trocars were placed. The skin and subcutaneous tissues at these sites were infiltrated with 0.5% marcaine with epinephrine prior to placement of these trocars. Attention was then directed to the right upper quadrant of the abdomen. The gallbladder wall appeared edematous. Graspers were placed in the lateral trocars to grasp the distal aspect of the gallbladder and direct it cephalad and to grasp the gallbladder at Castrejon?s pouch and direct it laterally. Dissection then began on the proximal gallbladder continuing down to the area of the triangle of Calot to bluntly dissect out the cystic duct. Of note, there was inflammatory changes in this area with edema. The neck of the gallbladder was identified and blunt dissection continued to dissect out a segment of the cystic duct. A clip was then placed on the neck of the gallbladder. A small ductotomy was then made, however bleeding occurred. This was because the cystic artery was densely adherent to the cystic duct and could not be . Therefore the planned intraoperative cholangiogram was aborted. Two clips were placed proximally and the cystic duct and artery were then transected. The gallbladder was then from the liver bed using electrocautery. Of note, the gallbladder wall was thickened and edematous with inflammatory changes and oozing. Any hemorrhage was controlled with electrocautery. The gallbladder was from the liver bed and thus able to be brought out of the umbilical port. It was then forwarded to pathology for analysis. The liver bed was carefully examined. There was inflammatory oozing and surgicel was applied to the liver bed. No active bleeding was noted. No bile leak was noted. The cystic duct and artery stump had their clips intact and there was no evidence of bile leakage or bleeding. Deepti was also applied to the area. The remainder of the abdomen was grossly normal. The CO2 was released and all trocars removed intact. The periumbilical fascia was approximated with a [id number] 0 vicryl suture. All skin incision were closed with 4-0 monocryl in a subdermal fashion. Cavilol and Steristrips were used to reinforce the skin closure. Sterile dressings were applied to all wounds. The patient was extubated and brought to the Recovery Room in stable condition. Grafts/Implants Used: Deepti Lot [id number], Hem-o-michael lot [id number] - Complications none noted - Admit VTE Documentation VTE Present on Admission: Yes VTE Mechan Device Prophylaxis: SCD's
[2018-03-27] MEDS: Ketorolac 15 MG/ML Vial IV (19:58)
[2018-03-28 04:12] VITALS: BP 123/70; PULSE 58; RESP 16; TEMP 36.6; O2SAT 94
[2018-03-28] MEDS: Ketorolac 15 MG/ML Vial IV (04:34)
[2018-03-28] MEDS: Lactated Ringers 1,000 ML 150 ML IV (04:34)
[2018-03-28 07:55] LABS: Lipase 188 U/L (73-393)
[2018-03-28 08:56] VITALS: BP 117/57; PULSE 52; RESP 18; TEMP 36.6; O2SAT 95
[2018-03-28 11:10] VITALS: BP 122/65; PULSE 54; RESP 16; TEMP 36.6; O2SAT 97
--- NOTE | 2018-03-28 11:10 | PCM.PN.SRG ---
Subjective: Patient complaint of right lateral soreness, denies abdominal pain that she initially presented with, able to urinate - Physical Exam General: Alert, Oriented x3 Oral: Moist Mucosa Neck: Supple Lungs: Normal air movement Abdomen: Bowel Sounds Present, Soft, - - dressings intact, no saturation noted Vital Signs Temp Pulse Resp BP Pulse Ox 97.8 F 52 L 18 117/57 L 95 03/28/18 08:56 03/28/18 08:56 03/28/18 08:56 03/28/18 08:56 03/28/18 08:56 Oxygen Flow Rate (L/min) 2 Oxygen Delivery Method Room Air Weight: 127.6 kg Body Mass Index (BMI) 40.4 Intake and Output for Last 24 Hours 03/26/18 03/27/18 03/28/18 23:59 23:59 23:59 Intake Total 2234 / 2234 2712 / 2712 Output Total 300 / 300 550 / 550 Balance 1934 / 1934 2162 / 2162 Laboratory Tests Past 24 Hrs 03/27/18 03/28/18 12:10 07:34 Lipase 2335 H 188 Medical Necessity - Tobacco Use Smoking Status: Never smoker Assessment/Plan Impression: POD#1 s/p laparoscopic cholecystectomy for gallstone pancreatitis Plan: normal lipase this morning, doubt need for ERCP Plan d/c to home, follow up with me next week
== END 2018-03-28 11:52 | disposition home or self-care (01) | DRG 769 ==
LOC: ED 03-27 00:06 → MS3 03-27 00:18
PROVIDERS: Anesthesiology; Admitting Provider Surgery; Emergency Provider Emergency Medicine; Family Provider Family Medicine; PCP Family Medicine; Visit Provider Surgery
PROC: 0FT44ZZ Resection of Gallbladder, Percutaneous Endoscopic Approach (ICD-10-PCS; CPT 47610; principal; 2018-03-27 08:50)
DX: O99.63 Diseases of the digestive system complicating the puerperium (principal); K85.10 Biliary acute pancreatitis without necrosis or infection; K80.12 Calculus of gallbladder with acute and chronic cholecystitis without obstruction
CPT/HCPCS: 36415; 76705; 80076; 81025; 83690; 85025; 88304; 99283; J7120; A4216; J2405

== ENCOUNTER → 2019-01-01 10:01 | Outpatient (CLI) | payer OTHER, SELFPAY ==
[2019-01-01 11:06] LABS: Progesterone Level 0.28 ng/mL (See Comment)
== END ==
PROVIDERS: Visit Provider Obstetrics & Gynecology
DX: N97.0 Female infertility associated with anovulation (principal)
CPT/HCPCS: 36415; 84144

== ENCOUNTER → 2019-01-26 16:06 | Outpatient (CLI) | payer OTHER, SELFPAY ==
[2018-03-27 07:51] VITALS: BMI 40.4
[2019-01-26 18:17] LABS: Progesterone Level 10.26 ng/mL (See Comment)
== END ==
PROVIDERS: Visit Provider Obstetrics & Gynecology
DX: N97.9 Female infertility, unspecified (principal)
CPT/HCPCS: 36415; 84144

== ENCOUNTER → 2019-02-23 16:42 | Outpatient (CLI) | payer OTHER, SELFPAY ==
[2018-03-27 07:51] VITALS: BMI 40.4
[2019-02-23 18:39] LABS: Progesterone Level 0.24 ng/mL (See Comment)
== END ==
PROVIDERS: Visit Provider Obstetrics & Gynecology
DX: N97.9 Female infertility, unspecified (principal)
CPT/HCPCS: 36415; 84144

== ENCOUNTER → 2019-03-26 16:10 | Outpatient (CLI) | payer OTHER, SELFPAY ==
[2018-03-27 07:51] VITALS: BMI 40.4
[2019-03-26 18:13] LABS: Progesterone Level 25.74 ng/mL (See Comment)
== END ==
PROVIDERS: Visit Provider Obstetrics & Gynecology
DX: N97.9 Female infertility, unspecified (principal)
CPT/HCPCS: 36415; 84144

== ENCOUNTER → 2019-04-15 16:24 | Outpatient (CLI) | payer OTHER, SELFPAY ==
[2018-03-27 07:51] VITALS: BMI 40.4
[2019-04-21 12:45] LABS: HPV Reflexed? NOT INDICATED
== END ==
PROVIDERS: Visit Provider Obstetrics & Gynecology
DX: Z12.4 Encounter for screening for malignant neoplasm of cervix (principal)
CPT/HCPCS: 88175; G0145

== ENCOUNTER → 2019-04-26 16:13 | Outpatient (CLI) | payer OTHER, SELFPAY ==
[2018-03-27 07:51] VITALS: BMI 40.4
[2019-04-27 14:58] LABS: Progesterone Level 7.51 ng/mL (See Comment)
== END ==
PROVIDERS: Visit Provider Obstetrics & Gynecology
DX: N97.0 Female infertility associated with anovulation (principal)
CPT/HCPCS: 84144

== ENCOUNTER → 2019-05-28 15:55 | Outpatient (CLI) | payer OTHER, SELFPAY ==
[2018-03-27 07:51] VITALS: BMI 40.4
[2019-05-28 17:30] LABS: Progesterone Level 4.98 ng/mL (See Comment)
== END ==
PROVIDERS: Visit Provider Obstetrics & Gynecology
DX: N97.9 Female infertility, unspecified (principal)
CPT/HCPCS: 36415; 84144

== ENCOUNTER → 2019-06-29 16:17 | Outpatient (CLI) | payer OTHER, SELFPAY ==
[2018-03-27 07:51] VITALS: BMI 40.4
[2019-06-29 18:05] LABS: Progesterone Level 12.69 ng/mL (See Comment)
== END ==
PROVIDERS: Visit Provider Obstetrics & Gynecology
DX: N97.9 Female infertility, unspecified (principal)
CPT/HCPCS: 36415; 84144

== ENCOUNTER → 2019-10-20 17:31 | Outpatient (CLI) | payer OTHER, SELFPAY ==
[2018-03-27 07:51] VITALS: BMI 40.4
[2019-10-20 20:05] LABS: Chlamydia Trachomatis by PCR Negative (Negative); Neisserai gonorrhoeae by PCR Negative (Negative)
[2019-10-20 20:06] LABS: Probe Check PASS; Sample Adequacy Control PASS; Specimen Processing Control PASS
== END ==
PROVIDERS: Referring Provider Obstetrics & Gynecology; Visit Provider Obstetrics & Gynecology
DX: Z32.01 Encounter for pregnancy test, result positive (principal); Z11.3 Encounter for screening for infections with a predominantly sexual mode of transmission
CPT/HCPCS: 87491; 87591

== ENCOUNTER 2019-11-09 19:55 | Inpatient (IN) | payer OTHER, SELFPAY ==
[2018-03-27 07:51] VITALS: BMI 40.4
[2019-11-09 20:19] VITALS: BMI 39.6
[2019-11-09] MEDS: 0.9% Saline Lock 10 ML Syringe IV (20:26)
[2019-11-09 20:35] VITALS: BP 132/74; PULSE 102; O2SAT 99
[2019-11-09 20:44] LABS: Absolute Lymphocyte Count 2.58 X10^3/uL (0.83-4.51); Absolute Neutrophil Count 6.2 X10^3/uL (2.0-7.7); Basophil# 0.03 X10^3/uL; Basophil% 0.3 % (0-1); Eosinophil# 0.13 X10^3/uL; Eosinophils% 1.4 % (0-5); Hematocrit 36.6 % (37-47); Hemoglobin 12.5 g/dL (12.0-15.0); Lymphocyte # 2.58 X10^3/ul (4.0); Lymphocyte % 26.9 % (19-41); Mean Corp Hgb Conc 34.2 g/dL (32-36); Mean Corpuscular Hgb 28.8 pg (27.0-32.0); Mean Corpuscular Volume 84.3 fL (81-99); Mean Platelet Vol. 9.2 fl (6.2-12.0); Monocyte# 0.57 X10^3/uL; Monocyte% 5.9 % (0-10); NRBC Flagged by Analyzer 0 % (0-5); Neutrophil # 6.21 X10^3/uL (2.7-7.7); Neutrophil % 64.9 % (47-70); Platelet Count 297 K/mm3 (150-450); RBC Distribution Width CV 12.6 % (11.6-14.6); RBC Distribution Width SD 37.8 fl (35.1-43.9); Red Blood Count 4.34 M/mm3 (4.2-5.4); White Blood Count 9.6 K/mm3 (4.4-11.0)
[2019-11-09] MEDS: miSOPROStol 200 MCG Tablet PO (21:00)
[2019-11-09 21:15] VITALS: TEMP 37.6
[2019-11-09 22:17] VITALS: BP 133/67; PULSE 65; O2SAT 98
[2019-11-09 22:18] VITALS: TEMP 37.1
--- NOTE | 2019-11-09 23:28 | PCM.HPOB.BLA ---
- Problem List (1) demise Status: Acute History and Physical Date of Admission: 11/09/19 [facility] [place] - [place]ORY AND PHYSICAL (11/09/2019) Name: REGINE GREENFIELDANTHA OB Physician: JAZZMINE 's Physician: PED FIELD REPRESENTATIVES DIRECTOR ...................................................................... : 1990 Age: 29 Address: [address] [place] [address] Phone: (h) [phone] ([phone] Insurance Carrier: [employer] [id number] Emergency Contact: CAREY GREENFIELD [phone] ...................................................................... Final ЕКАТЕРИНА: 04/13/20 By Ultrasound: 14 weeks 6 days PARITY: (G-Total Pregnancies P-Fullterm,Premature,Induced AB,Spont AB, Ectopics, Multiple,Living) ЕКАТЕРИНА CONFIRMATION: By LMP: 07/09/19 Final ЕКАТЕРИНА: 04/13/20 BLOOD TYPE: AFP: 1 HR P GBS: Group B Beta Streptococcus is not isolated. Original Ordering Provider: Carey BOWERS Culture Group B Beta Streptococcus is not isolated. 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 Illicit Drug Use - denies use of street drugs Sexual Activity - Residence - lives with Place of - [place], [place] Hours Worked - 40 hours per week Spouse-Sig Other Name - Carey Spouse-Sig Other Occupation - [employer] Spouse-Sig Other Phone No - [phone] Children Name(s) - Urban '13, Nithin ('18) PRIOR DELIVERY HISTORY DEL DATE GEST LAB WT LB WT OZ TYPE ANES LABOR TX 27 Apr 07 40 12 9 1 C-Sec Epidural No ANTEPARTUM FLOW CHART VISIT GE RTC FU F F CO U U DATE WK MD WKS HT PN HR M SS BP ED WT CO GL D EF ST __ ____ ___ __ __ ___ __ __ __ ___ __ __ __ ___ __ ANTEPARTUM NOTE(S): COMPREHENSIVE ANTEPARTUM NOTE(S): Nov 08 2019: Pt is 17 wks 4 days prg and having aching in pelvic area. Pt has been having some dull aching type in lower abd but denies UTI sx and no spotting. Pt has not felt the baby move for 1 wk. She had felt it a lot but none now. Explained that usu do not feel consistently until after 20 wks and could be just the position of the baby. Given apt this afternoon with nurse for FHT ck for reassurance. Pt also went hiking yesterday and that could be the aching she is felling due to muscles that she has not used and with the . Presented to office for u/s and noted to have a 15+ week IUD without FHTs Oct 20 2019: Liliane is a 29 yr old here for Missed Menses. By LMP 07/09/2019, she would be 14 wks 4 days, ЕКАТЕРИНА 04/15/2020. Took Clomid then. On 10/16/2019, discussing their trip to [place] [employer] this coming Friday and suggested she take a preg test. -- it was POSITIVE. They were surprised !!!! 2 previous C/S, Cholecystectomy. Taking PNV and waiting for this visit to see if she needs to take Prometrium or not. Non-smoker. Last pap 04/15/2919. informational materials given. Reviewed otc meds ok to take. NO NSAIDS. kb Oct 20 2019: ok Apr 15 2019: Liliane presents here today for annual pap/exam. 29 y.o. G 2 P 2 non-smoker with LMP of 04-03-19 lasting her average of 5 days and continues use of Clomid for attempting . Denies new life consultant concerns at this time. History of all normal pap screenings since 2007 through 2017. Medication and Allergy list up-dated with no refills needed at this time. PAUL Apr 15 2019: ok REVIEW OF SYSTEMS: GENERAL - Denies fever, or chills SKIN - Denies rash, new skin lesions, or change in moles EYES - Denies blurred vision, or change in visual acuity EARS - Denies ear pain, or difficulty hearing NOSE - Denies nasal congestion, discharge, or bleeding MOUTH - Denies sore throat, or difficulty swallowing NECK - Denies pain or swelling RESPIRATORY - Denies shortness of breath, cough, wheezing CARDIOVASCULAR - Denies palpitations, chest pain, orthopnea, PND, peripheral edema, syncope or claudication GASTROINTESTINAL - Denies nausea, vomiting, diarrhea, constipation, Denies abdominal pain, melena and or bright red blood GENITOURINARY - Denies dysuria, frequency of urination, urgency, or hesitancy MUSCULOSKELETAL - Denies joint or muscle pain, or back pain NEUROLOGICAL - Denies localized numbness, weakness, or tingling PSYCHIATRIC - Denies depression, anxiety, substance abuse or suicide attempts ENDOCRINE - Denies heat or cold intolerance, weight loss or gain, increasing thirst HEMATO-IMMUNOLOGIC - Denies easy bruising, bleeding, oral ulcerations or recurrent infections GENETICS SCREENING: Age 35+ years: No Thalassemia: No Neural Tube Defect: No Down Syndrome: No MURIEL-SACHS: No Sickle Cell Disease: No Hemophilia: No Musc. Dystrophy: No Cystic Fibrosis: No-declines screening Neris Chorea: No Mental Retardation: No Fragile X: No Other genetic: No Other defects: No SABs/still births: No Drugs since LMP: No Comments: sibling with unknown chromosomal abnormality INFECTION HISTORY: High risk AIDS: No High risk Hepatitis: No Exposed to TB: No Exposed to Herpes: No Rash/viral illness since LMP: No History of STD: No MENSTRUAL HISTORY: *Menses Amount/Duration: 5 daysMenses Regularity: IrregularFrequency: variablePrior Menses Date: 07/21/2010Menarche (Age Onset): 10* PAST SUMMARY: PARITY: 1. Total Pregnancies............ 3 2. Full Term Pregnancies........ 2 3. Premature.................... 0 4. Abortions - Induced.......... 0 5. Abortions - Spontaneous...... 0 6. Ectopics..................... 0 7. Multiple Births.............. 0 8. Living Children.............. 2 PAST #1: Date of :.................. 04/21/13 Gestation Weeks:................ 40 Length of labor(hours):......... 12 Sex:............................ M Weight-lbs:............... 9 Weight-oz:................ 1 Type of Delivery:............... C-Sect Type of Anesthesia:............. Epidural Place of Delivery:.............. [facility] Treatment of Labor?:.... No Comment: FTP, LABOR INTOL General Appearence: 29 yo female in no acute distress Vital Signs: AF, VSS Heart: RRR without rubs or gallops Lungs: CTA x 2 Breasts: deferred Abdomen: gravid Pelvis: Cervix: closed Presentation: - Station: Fetus: demise at 17 weeks gestation Mom's Problem List Problem Status Onset Code demise Acute Mom's Labs & Results 11/09/19 11/09/19 11/09/19 20:25 20:25 21:20 WBC 9.6 RBC 4.34 Hgb 12.5 Hct 36.6 L MCV 84.3 MCH 28.8 MCHC 34.2 RDW Std Deviation 37.8 RDW Coeff of Mariya 12.6 Plt Count 297 MPV 9.2 Immature Gran % (Auto) 0.600 Neut % (Auto) 64.9 Lymph % (Auto) 26.9 Daniels % (Auto) 5.9 Eos % (Auto) 1.4 Baso % (Auto) 0.3 Absolute Neuts (auto) 6.2 Absolute Lymphs (auto) 2.58 Nucleated RBC % 0 COVID-19 (REJI) Pending Blood Type B NEGATIVE Antibody Screen NEGATIVE Course Did the patient receive Yes care? Labs Blood Type: B RH: NEGATIVE Chlamydia Negative Gonorrhea Negative Current Obstetrical History Gestational Diabetes No Incompetent Cervix No Infertility Yes IUGR No Macrosomia No Hypertension/Pre-eclampsia No Placenta Previa/Abruption No PTL/PROM No Uterine anomaly No Oligohydramnios No Polyhydramnios No Multiple gestation No Past Medical History Asthma No Diabetes No Hypertension No Heart disease No Mitral valve prolapse No Neurologic/Seizure disorder/ No Migraines Kidney disease No Liver disease No Varicosities No Clotting disorders/Hx of DVT No Thyroid Dysfunction No Other medical diseases No Psychiatric disorders No Major trauma No Abnormal PAP smear No Sleep apnea No Mammogram in the last 2 years No Social History Marital Status: Alleged father Carey Greenfield Hx Smoking No Smoking Status Never smoker Impression/Plan: Cytotec induction for IUFD at 17 weeks gestation
[2019-11-09] MEDS: Acetaminophen 500 MG Tablet 1000 MG PO (23:55)
[2019-11-09] MEDS: Zolpidem Tartrate 5 MG Tablet PO (23:56)
[2019-11-10] VITALS (28 sets, daily range): BP systolic 111–137; BP diastolic 62–90; PULSE 59–102; RESP 18; TEMP 36.2–37.1; O2SAT 91–100
[2019-11-10] MEDS: fentaNYL 100 MCG/2 ML Ampul IV ×3 (00:40→06:35)
[2019-11-10] MEDS: 0.9% Saline Lock 10 ML Syringe IV ×4 (00:41→03:42)
[2019-11-10] MEDS: Morphine 4 MG/ML Syringe IV ×3 (01:55→07:57)
[2019-11-10] MEDS: miSOPROStol 200 MCG Tablet PO (03:35)
[2019-11-10] MEDS: HYDROmorphone 1 MG/ML Syringe IV (03:40)
[2019-11-10] MEDS: Lactated Ringers 500 ML 999 ML IV (04:22)
[2019-11-10] MEDS: Lactated Ringers 1,000 ML 200 ML IV (04:52)
[2019-11-10] MEDS: Oxytocin 30 units/NS 500 ml 30 UNITS/500 ML IV.SOLN 334 UNITS IV (08:04)
[2019-11-10] MEDS: Cefazolin 2 GM in 0.9% Normal Saline 100 ML IV (09:10)
--- NOTE | 2019-11-10 09:26 | PCM.OPRPT ---
Vaginal Delivery Maternal Presentation: Medically Indicated Induction Method of Induction: Cytotec Medical Reason for Induction: demise Amniotic Membrane Rupture Type: Spontaneous Final ЕКАТЕРИНА: 04/13/20 Final ЕКАТЕРИНА Source: US <20 weeks Gestational age: 17 Weeks and 6 Days Date of Procedure: 11/10/19 Pre-Operative Diagnosis: 17 Week Demise Post-Operative Diagnosis: 17 Week Demise, Retained Placenta Type of Anesthesia: Epidural Description of Procedure: Precipitous spontaneous vaginal delivery of a nonviable 15-week macerated male fetus. Placenta retained and removed via ring forcep and gentle banjo curetting under ultrasound guidance to complete removal. IV pain medication given during this portion of the procedure. Minimal vaginal bleeding noted when complete. No episiotomy or lacerations. Sponges okay. Delivery attending: Ankit Christensen MD. Placental Delivery Description: Manual Removal, Retained, Curettage Placenta Disposition: [facility] Cord Entanglement: None Estimated Blood Loss: 650 cc A gender: Male Episiotomy Description: None Laceration: None Medications given after delivery: IV Pitocin Complications: None
--- NOTE | 2019-11-10 09:40 | DCINST_ITS ---
Discharge Diet: No Restrictions Discharge Activity: Return to Normal Activity, May Shower, May Take a Tub Bath May resume sexual activity in: 3 weeks Call your doctor if your incision/area has: Sudden Increased Bleeding, Increased Pain/ Swelling, Foul Smelling Discharge Call your doctor if you observe: Fever of 101 or Higher, Inability to urinate, Inability to have a bowel movement, Using more than one pad per hour Additional Instructions: If you experience any of the following, contact your healthcare provider. * Bleeding that soaks a pad every hour for 2 hours * Problems urinating (including inability to urinate or burning while urinating). * Flu-like symptoms * Pain or redness in one of both of your breasts * Pain, warmth, tenderness or swelling in your legs, especially the calf area * Frequent nausea and vomiting * Symptoms of depression or anxiety If you experience any of the following, call 911 or go to the nearest Emergency Room. * Chest pain * Problems breathing * Seizure activity * Partial or complete paralysis of a body part, slurred speech, weakness or drooping of the face, or a sudden inability to walk or hold your balance Allergies/Adverse Reactions: Allergies codeine Adverse Reaction (Verified 03/26/18 22:50) Other CONSTIPATION naproxen Adverse Reaction (Verified 03/26/18 22:50) Nausea Medications to take at Discharge Vits [Prenatabs FA ] 1 tablet PO DAILY 04/20/13 Please Follow Up With: Ankit Christensen MD When: 2-3 weeks Test Results: Test results from this visit will be discussed in further detail at your follow- up appointment, if applicable.
--- NOTE | 2019-11-10 11:30 | NURSING ---
pt. assisted up from bed at 1110 to br, voided, missed hat, ambulating independently, discussed perineal care and pain control
== END 2019-11-10 13:15 | disposition home or self-care (01) | DRG 807 ==
PROVIDERS: Admitting Provider Obstetrics & Gynecology; Referring Provider Obstetrics & Gynecology; Visit Provider Obstetrics & Gynecology
DX: O02.1 Missed abortion (principal); O73.0 Retained placenta without hemorrhage; O34.219 Maternal care for unspecified type scar from previous cesarean delivery; Z3A.17 17 weeks gestation of pregnancy; Z37.1 Single stillbirth
CPT/HCPCS: 76815; 85025; 85461; 86850; 86900; 86901; 87635; 90384; 99218; G2023; J7120; A4216; G0378; J2790; U0003

== ENCOUNTER → 2020-03-27 15:44 | Outpatient (CLI) | payer OTHER, SELFPAY ==
[2020-03-27 17:52] LABS: Progesterone Level 9.52 ng/mL (See Comment)
== END ==
PROVIDERS: Visit Provider Obstetrics & Gynecology
DX: N97.0 Female infertility associated with anovulation (principal)
CPT/HCPCS: 36415; 84144

== ENCOUNTER → 2020-04-28 15:53 | Outpatient (CLI) | payer OTHER, SELFPAY ==
[2020-04-28 17:15] LABS: Progesterone Level 10.11 ng/mL (See Comment)
== END ==
PROVIDERS: Visit Provider Obstetrics & Gynecology
DX: N97.0 Female infertility associated with anovulation (principal)
CPT/HCPCS: 36415; 84144

== ENCOUNTER → 2020-05-29 15:58 | Outpatient (CLI) | payer OTHER, SELFPAY | PROVIDERS: Visit Provider Obstetrics & Gynecology | DX: N97.0 Female infertility associated with anovulation (principal) | CPT/HCPCS: 84144 ==

== ENCOUNTER → 2020-06-30 15:58 | Outpatient (CLI) | payer OTHER, SELFPAY ==
[2020-06-30 17:02] LABS: Progesterone Level 0.26 ng/mL (See Comment)
== END ==
PROVIDERS: Visit Provider Obstetrics & Gynecology
DX: N97.0 Female infertility associated with anovulation (principal)
CPT/HCPCS: 36415; 84144

== ENCOUNTER → 2020-08-02 10:31 | Outpatient (CLI) | payer OTHER, SELFPAY ==
[2020-08-02 14:23] LABS: Progesterone Level 2.26 ng/mL (See Comment)
== END ==
PROVIDERS: Visit Provider Obstetrics & Gynecology
DX: N97.0 Female infertility associated with anovulation (principal)
CPT/HCPCS: 36415; 84144

== ENCOUNTER → 2020-09-06 14:53 | Outpatient (CLI) | payer OTHER, SELFPAY ==
[2020-09-06 16:01] LABS: Progesterone Level 0.32 ng/mL (See Comment)
== END ==
PROVIDERS: Visit Provider Obstetrics & Gynecology
DX: N97.0 Female infertility associated with anovulation (principal)
CPT/HCPCS: 36415; 84144

== ENCOUNTER → 2020-11-02 09:14 | Outpatient (CLI) | payer OTHER, SELFPAY ==
[2020-11-02 11:02] LABS: Progesterone Level 1.83 ng/mL (See Comment)
== END ==
PROVIDERS: Visit Provider Obstetrics & Gynecology
DX: N97.0 Female infertility associated with anovulation (principal)
CPT/HCPCS: 36415; 84144

== ENCOUNTER → 2021-01-12 10:45 | Outpatient (CLI) | payer OTHER, SELFPAY ==
[2021-01-12 12:55] LABS: Progesterone Level 0.53 ng/mL (See Comment)
== END ==
PROVIDERS: Visit Provider Obstetrics & Gynecology
DX: N97.0 Female infertility associated with anovulation (principal)
CPT/HCPCS: 36415; 84144

== ENCOUNTER 2021-07-11 15:45 | Outpatient (CLI) | payer OTHER, SELFPAY ==
[2021-07-16 18:01] LABS: HPV Reflexed? NOT INDICATED
== END 2021-07-11 23:59 | disposition home or self-care (01) ==
LOC: LABSPEC 15:48
PROVIDERS: PCP Family Medicine; Visit Provider Obstetrics & Gynecology
DX: Z12.4 Encounter for screening for malignant neoplasm of cervix (principal)
CPT/HCPCS: 88175; G0145

== ENCOUNTER 2021-07-16 16:30 | Outpatient (RCR) | payer OTHER, SELFPAY ==
--- NOTE | 2021-07-09 08:48 | HP.PTEVAL_ITS ---
Patient's Visit Information LILIANE GREENFIELD is a 31 year old F referred to Physical Therapy by GLADYS BAKER with a diagnosis of R ATFL sprain with brodstrom stabilization. Date of Evaluation: 07/09/21 Physical Therapist: Adrian Mabry DPT - Visit Plan Frequency: 3x /Week Duration: 3 Weeks Plan: Start with ROM, strengthening of R ankle. Work on gait mechanics. Progress as tolerated. - Subjective Pt is here today for her initial evaluation with diagnosis of R ATFL sprain with brodstrom stabilization. Pt. arrives in boot with good tolerance. She reports overall doing well, but is having some swelling by the end of the day. 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 She reports no major issues, but does need to be active for work. She does have little children as well. She is tolerating walking well without issues. Denies N/T, no calf pain. Pt .is hopeful to get back to recreational walking, working out and most areobic activities without limitations. She has been icing with good tolerance, along with compression and elevation. - Pain R ankle Pain Intensity (Out of 10): 2 Pain Intensity Range: 0, 4 - Objective POSTURE: Pt. has good posture in stance. Pt. has good tolerance to equal wt. shifting between bilateral LEs. PALPATION: Pt. has good healing incision, no signs of infection. Pt. has some marked edema, non pitting throughout ankle and foot. NEURO: Pt. has normal DTR of BLEs, normal sensation of BLEs. ROM: R ankle: DF 2deg, PF 41deg, INV 6deg EVR 4 deg. L ankle: normal throughout. Pt. has normal hip and knee ROM. MMT: RLE: ankle: DF 4/5, and 4+/5, EVR 4/5, INV 4/5; knee: ext 5/5, flexion 5/5. Hip: flexion 5-/5, abd 4+/5, ext 5-/5. LLE: ankle 5/5 throughout; knee: ext 5/5, flexion 5/5. Hip: flexion 5-/5, abd 4+/5, ext 5-/5. GAIT: Pt. ambulates without AD. She has early heel off with RLE during pre swing, with attempts to correct she had increased R knee ext during stance phase. STARIS: loading LLE only, early heel off with descending with R loading phase. Use of BHRs. - Balance/Special Test Scores Lower Extremity Functional Score: 50 - Goals Goal 1:: LTG: Pt. to be I with HEP for ROM and strengthening of her RLE. Goal Time Frame: 2-4 Weeks Goal 2:: STG: Pt. to have decreased edema to R ankle, equal in girth to L ankle. Goal Time Frame: 2 Weeks Goal 3:: STG: Pt. to have increased DF to 15deg allowing for increased functional gait pattern and stair negotiation. Goal Time Frame: 2 Weeks Goal 4:: LTG: Pt. have increased R ankle strength to 5/5 throughout musculature allowing for increased stability in SLS positioning. Goal Time Frame: 2-4 Weeks Goal 5:: LTG: Pt. to ambulate with proper techniques without AD without reports of increased in symptoms. Goal Time Frame: 2-4 Weeks Goal 6:: LTG: Pt. to negotiate steps with 1 HR with reciprocal pattern with normal pattern and no increase in R ankle pain. Goal Time Frame: 2-4 Weeks - Rehabilitation Potential Physical Therapy Diagnosis: Pt. has signs and symptoms consistent with R ATFL sprain with brodstrom stabilization. Pt. has subsequent increased edema, hypomobility, weakness, and difficulty with gait. She would benefit from PT to work on the above limitations progressing back to all work and recreational activities without limitations. Rehabilitation Potential: Excellent - Anticipated Interventions Patient/Client Instruction: Educate patient on: Condition, Plan of Care, Risk Factors, Benefits of Fitness Program For the Purpose of:: To improve decision making, To facilitate caregiver knowledge, To improve self management, To prevent re-injury, To improve ability to perform tasks related to life management Therapeutic Exercise to Include: Strength training, Power training, Endurance training, Coordination, Body mechanics, Postural training, Flexibilty training, Gait and locomotor training, Passive ROM, Active ROM For the Purpose of:: To decrease pain, To decrease swelling/inflammation, To increase ROM, To improve nutrient delivery to tissue, To increase oxygenation perfusion, To improve muscle performance and motor function, To improve ability to perform ADL's, To increase tolerance to activity/condition/position, To improve performance and independence with ADL's, To improve ability of physical actions for home/community/work/leisure, To improve gait and locomotor functions, To improve health of tissue, To decrease soft tissue restriction TENS: Yes IF ES: Yes Cryotherapy (ice pack, ice massage): Yes Vasopneumatic device: Yes For the Purpose of:: To decrease pain, To decrease swelling/inflammation, To increase ROM, To improve nutrient delivery to tissue Thank you for the opportunity to evaluate your patient. For Medicare and Medicare HMO plans, please review the plan of care and approve it. It will need to be FAXED BACK to us at [phone] for Medicare purposes. For Medicare only, by signing this I certify the plan of care. Please let me know if there are questions or concerns regarding this plan of care. Physician Signature: Date:
== END 2021-07-16 19:00 | disposition home or self-care (01) ==
LOC: PT 16:30
PROVIDERS: PCP Family Medicine
DX: S93.491D Sprain of other ligament of right ankle, subsequent encounter (principal)
CPT/HCPCS: 97110; 97161

== ENCOUNTER 2021-08-11 08:24 | Outpatient (CLI) | payer OTHER, SELFPAY ==
[2021-08-13 09:22] LABS: Progesterone Level 34.58 ng/mL (See Comment)
== END 2021-08-11 23:59 | disposition home or self-care (01) ==
LOC: LAB 08:25
PROVIDERS: PCP Family Medicine; Referring Provider Obstetrics & Gynecology; Visit Provider Obstetrics & Gynecology
DX: Z51.81 Encounter for therapeutic drug level monitoring (principal)
CPT/HCPCS: 36415; 84144

== ENCOUNTER 2021-09-12 16:17 | Outpatient (CLI) | payer OTHER, SELFPAY ==
[2021-09-12 17:50] LABS: Progesterone Level 10.79 ng/mL (See Comment)
== END 2021-09-12 23:59 | disposition home or self-care (01) ==
LOC: WOBLAB 16:18
PROVIDERS: PCP Family Medicine; Visit Provider Obstetrics & Gynecology
DX: Z51.81 Encounter for therapeutic drug level monitoring (principal)
CPT/HCPCS: 36415; 84144

== ENCOUNTER → 2021-10-08 | Outpatient (CLI) | payer OTHER, SELFPAY ==
[2021-10-11 07:08] LABS: Chlamydia By Nucleic Acid AMP Negative (Negative)
[2021-10-11 16:37] LABS: Gonococcus By Nucleic Acid AMP Negative (Negative)
== END | disposition home or self-care (01) ==
LOC: LABSPEC 14:55
PROVIDERS: PCP Family Medicine; Visit Provider Obstetrics & Gynecology
DX: Z11.3 Encounter for screening for infections with a predominantly sexual mode of transmission (principal)
CPT/HCPCS: 87491; 87591

== ENCOUNTER 2021-10-20 20:37 | Emergency (ER) | payer OTHER, SELFPAY ==
[2021-10-20 20:37] VITALS: BP 162/83; PULSE 87; RESP 16; TEMP 37.1; O2SAT 98; BMI 40.6
--- NOTE | 2021-10-20 22:03 | US_ITS ---
ACR Level 3 findings have been noted. An addendum which confirms receipt of the report will follow. EXAM: US FIRST TRIMESTER , TRANSABDOMINAL CLINICAL INDICATION: bleeding TECHNIQUE: Real-time transabdominal obstetrical ultrasound of the maternal pelvis and a first trimester with image documentation. This report was created using [employer] report generation technology. COMPARISON: None. FINDINGS: GESTATION: Intrauterine gestation sac in the fundus, mildly eccentric to the left but there is adequate adjacent myometrium, not suspicious for a cornual ectopic. There is some complex adjacent material in the right fundus which may be due to a small hemorrhage, one of the small cystic components was measured but the overall size of the material is estimated to be about 2.3 cm x 1.6 cm x 2.7 cm. Mean sac diameter corresponds to 8 weeks 4 days gestation. Small yolk sac of 3 mm. pole 1.7 cm consistent with 7 weeks 6 days gestation age. Normal early heart rate of 166 bpm. PLACENTA/AMNIOTIC FLUID: Cannot be adequately evaluated due to the early gestational age. UTERUS/CERVIX: Uterus 12.4 cm x 7.7 cm x 10.1 cm. No myometrial mass. OVARIES: Right ovary 3.0 cm x 3.0 cm x 2.9 cm with some documented blood flow. Left ovary 6.4 cm x 6.6 cm x 6.7 cm, with 5.4 cm x 6.2 cm x 5.7 cm simple-appearing cyst and some documented blood flow in the periphery. No mass. FREE FLUID: No free fluid. US/Init OB < 14Wks US IMPRESSION: 1. Early single live IUP. Suspicion of hemorrhage of up to 2.7 cm diameter in the right uterine fundus adjacent to the mildly eccentric left fundal intrauterine gestation sac. 2. Simple-appearing 6.2 cm left ovarian cyst. Short-term follow-up is suggested in 4-6 weeks if it is thought to be indicated. Electronically Signed: Deysi Campbell MD at 23:44 EDT ,
--- NOTE | 2021-10-20 22:04 | EDS_ITS ---
HPI HPI - Female History of Present Illness Chief Complaint: Vag Bld, Preg Informant: patient Narrative Narrative: Patient presents with a quarter sized area of blood vaginally about 4 hours ago. This is not associated with any cramping. No lightheadedness. She states she has had bleeding throughout my . But this was a larger bit of blood almost like a small clot but no apparent tissue. Last ultrasound was about 2 weeks ago but I do not have access to that as it was done in the office. She called her OB who referred her in here tonight. Patient did take Clomid prior to the is. She is on Prometrium now. No anticoagulation. No urinary symptoms. I believe she is Rh-. PFSH PFSH Home Medications vit,[id number] [Prenatabs FA ] 1 tab PO DAILY 04/20/13 [History Last Taken 11/08/19 21:00] progesterone micronized [Prometrium] 200 mg PO BID 10/20/21 [History Last Taken Unknown] Allergy/AdvReac Type Severity Reaction Status Date / Time codeine AdvReac Other Verified 10/20/21 20:39 naproxen AdvReac Nausea Verified 10/20/21 20:39 Social History Smoking Status: Never smoker ROS ROS ED Constitutional Constitutional ED: Denies chills or fever(s) ENT ENT ED: Denies rhinorrhea Cardiovascular Cardiovascular: Denies chest pain or palpitations Respiratory/Chest Respiratory/Chest: Denies dyspnea Gastrointestinal Gastrointestinal: Denies abdominal pain, nausea or vomiting Genitourinary Genitourinary ED: Denies dysuria or hematuria Musculoskeletal Musculoskeletal: Denies myalgias Integumentary Denies rash Neurologic Neurologic: Denies headache(s) Psychiatric Psychiatric: Denies depression Endocrine Endocrinology: Denies polydipsia or polyuria Hematologic/Lymphatic Hematologic/Lymphatic: Denies easy bleeding or easy bruising Allergic/Immunologic Allergic/Immunologic ED: Denies urticaria EXAM Physical Exam Const Vital Signs: 10/20/21 20:37 Temperature 98.8 F Temperature Source Temporal Pulse Rate 87 Respiratory Rate 16 Blood Pressure 162/83 H Blood Pressure Mean 109 Pulse Ox 98 Oxygen Delivery Method Room Air Positive well nourished and well developed General Appearance ED: well developed and NAD HEENT Reports moist mucous membranes Eyes General Eye ED: Negative for pale conjunctiva or scleral icterus Neck no JVD Chest Wall inspection of chest normal Resp normal respiratory effort and clear to auscultation bilaterally Cardio regular rate and regular rhythm GI normal to inspection, nondistended, normoactive bowel sounds, soft to palpation and non-tender no CVA tenderness Back/Spine no CVA tenderness Extremity normal to inspection General Extremety ED: Negative for tenderness Neuro Sensorium / Orientation: alert Psych mental status grossly normal Skin no rashes or lesions noted MDM MDM MDM Narrative Medical decision making narrative: Blood work shows normal CBC. Blood type is B-. RhoGAM is ordered. hCG is 57,565. Ultrasound shows suspicion of a small area of bleeding was at the fundus. This is consistent with her history. She is not having any recurrent bleeding on exam. She still has no pain. I think follow-up with her OB is appropriate. Lab Data Labs: Laboratory Results - last 24 hr 10/20/21 10/20/21 10/20/21 21:53 22:15 22:15 WBC 9.6 RBC 4.66 Hgb 13.3 Hct 38.3 MCV 82.2 MCH 28.5 MCHC 34.7 RDW Std Deviation 36.2 RDW Coeff of Mariya 12.2 Plt Count 331 MPV 9.0 Immature Gran % (Auto) 0.500 Neut % (Auto) 64.8 Lymph % (Auto) 25.7 [place] % (Auto) 6.8 Eos % (Auto) 1.9 Baso % (Auto) 0.3 Absolute Neuts (auto) 6.2 Absolute Lymphs (auto) 2.45 Nucleated RBC % 0 HCG, Quant 47695 H Serum , Qual P Blood Type 10/20/21 22:15 WBC RBC Hgb Hct MCV MCH MCHC RDW Std Deviation RDW Coeff of Mariya Plt Count MPV Immature Gran % (Auto) Neut % (Auto) Lymph % (Auto) [place] % (Auto) Eos % (Auto) Baso % (Auto) Absolute Neuts (auto) Absolute Lymphs (auto) Nucleated RBC % HCG, Quant Serum , Qual Blood Type B NEGATIVE Radiography Diagnostic Testing: Clinical Impression(s) from Imaging Studies Obstetrics Ultrasound 10/20/21 22:03 IMPRESSION: 1. Early single live IUP. Suspicion of hemorrhage of up to 2.7 cm diameter in the right uterine fundus adjacent to the mildly eccentric left fundal intrauterine gestation sac. 2. Simple-appearing 6.2 cm left ovarian cyst. Short-term follow-up is suggested in 4-6 weeks if it is thought to be indicated. Electronically Signed: Deysi Campbell MD at 23:44 EDT , ADDENDUM: 10/20/21 2356 IMPRESSION: 1. Early single live IUP. Suspicion of hemorrhage of up to 2.7 cm diameter in the right uterine fundus adjacent to the mildly eccentric left fundal intrauterine gestation sac. 2. Simple-appearing 6.2 cm left ovarian cyst. Short-term follow-up is suggested in 4-6 weeks if it is thought to be indicated. N.B. : AMBROCIO Hannah, confirmed on 10/20/2021 23:49:22 (ET) that the healthcare facility has received the radiology report. Electronically Signed: Deysi Campbell MD at 23:44 EDT , Discharge Plan Triage Chief Complaint: Vag Bld, Preg ED Provider: Herbert Tijerina Dx/Rx/DC Orders Clinical Impression: First-trimester bleeding, , threatened Instructions: Bleeding During Early , ED Possible Miscarriage ... Prescriptions: No Action vit,[id number] [Prenatabs FA] 1 TABLET tablet 1 tab PO DAILY RF: 0 progesterone micronized [Prometrium] 200 mg capsule 200 mg PO BID RF: 0 Primary Care Provider: Alberto Disla Referrals: Ankit Christensen MD [STAFF PHYSICIAN] - As soon as possible Alberto Disla MD [Primary Care Provider] - Disposition Disposition: Home, Self Care
[2021-10-20 22:08] LABS: Internal QC Validated? YES +Cl - CLEAR BKGD; Pregnancy, Serum, hCG Quali. P Negative
[2021-10-20 22:38] LABS: Absolute Lymphocyte Count 2.45 X10^3/uL (0.83-4.51); Absolute Neutrophil Count 6.2 X10^3/uL (2.0-7.7); Basophil# 0.03 X10^3/uL; Basophil% 0.3 % (0-1); Eosinophil# 0.18 X10^3/uL; Eosinophils% 1.9 % (0-5); Hematocrit 38.3 % (37-47); Hemoglobin 13.3 g/dL (12.0-15.0); Lymphocyte # 2.45 X10^3/ul (0.83-4.51); Lymphocyte % 25.7 % (19-41); Mean Corp Hgb Conc 34.7 g/dL (32-36); Mean Corpuscular Hgb 28.5 pg (27.0-32.0); Mean Corpuscular Volume 82.2 fL (81-99); Monocyte# 0.65 X10^3/uL; Monocyte% 6.8 % (0-10); NRBC Flagged by Analyzer 0 % (0-5); Neutrophil # 6.19 X10^3/uL (2.7-7.7); Neutrophil % 64.8 % (47-70); Platelet Count 331 K/mm3 (150-450); RBC Distribution Width CV 12.2 % (11.6-14.6); RBC Distribution Width SD 36.2 fl (35.1-43.9); Red Blood Count 4.66 M/mm3 (4.2-5.4); White Blood Count 9.6 K/mm3 (4.4-11.0)
[2021-10-21 02:07] VITALS: BP 139/82; PULSE 75; RESP 18; O2SAT 96
== END 2021-10-21 02:23 | disposition home or self-care (01) ==
PROVIDERS: Emergency Provider Emergency Medicine; PCP Family Medicine; Visit Provider Emergency Medicine
DX: O20.0 Threatened abortion (principal); Z3A.00 Weeks of gestation of pregnancy not specified
CPT/HCPCS: 76801; 84702; 84703; 85025; 86900; 86901; 90384; 96372; 99282; A4216; J2790

== ENCOUNTER 2021-10-23 14:53 | Outpatient (CLI) | payer OTHER, SELFPAY | END 2021-10-23 23:59 | disposition home or self-care (01) | PROVIDERS: PCP Family Medicine; Visit Provider Obstetrics & Gynecology | DX: N76.0 Acute vaginitis (principal) ==

== ENCOUNTER → 2021-11-07 | Outpatient (CLI) | payer OTHER, SELFPAY ==
[2021-11-07 10:16] LABS: Absolute Lymphocyte Count 1.69 X10^3/uL (0.83-4.51); Absolute Neutrophil Count 6.5 X10^3/uL (2.0-7.7); Basophil# 0.01 X10^3/uL; Basophil% 0.1 % (0-1); Eosinophil# 0.12 X10^3/uL; Eosinophils% 1.4 % (0-5); Hematocrit 38.7 % (37-47); Hemoglobin 13.2 g/dL (12.0-15.0); Lymphocyte # 1.69 X10^3/ul (0.83-4.51); Lymphocyte % 19.1 % (19-41); Mean Corp Hgb Conc 34.1 g/dL (32-36); Mean Corpuscular Hgb 28.4 pg (27.0-32.0); Mean Corpuscular Volume 83.2 fL (81-99); Mean Platelet Vol. 9.2 fl (6.2-12.0); Monocyte# 0.47 X10^3/uL; Monocyte% 5.3 % (0-10); NRBC Flagged by Analyzer 0 % (0-5); Neutrophil # 6.52 X10^3/uL (2.7-7.7); Neutrophil % 73.4 % (47-70); Platelet Count 338 K/mm3 (150-450); RBC Distribution Width CV 12.3 % (11.6-14.6); RBC Distribution Width SD 37.1 fl (35.1-43.9); Red Blood Count 4.65 M/mm3 (4.2-5.4); White Blood Count 8.9 K/mm3 (4.4-11.0)
[2021-11-07 10:17] LABS: Color, Urine Yellow (Yellow); Glucose, Dipstick Normal (Normal); Ketone-Dipstick Negative (Negative); Leukocyte Esterase-Dipstick Negative /ul (Negative); Nitrite-Dipstick Negative (Negative); Occult Blood-Urine 10 /ul (Negative); Protein-Dipstick Negative (Negative); Urine Bilirubin Dipstick Negative (Negative); Urine Clarity Sl. Cloudy (Clear); Urine Urobilinogen Normal (Normal)
[2021-11-07 11:13] LABS: Thyroid Stim Hormone (TSH) 0.29 uIU/mL (0.358-3.74)
[2021-11-07 11:34] LABS: HIV - WCH Non-Reactive (Nonreactive); Hepatitis B Surface Antigen Non-Reactive (Nonreactive); Hepatitis C Antibody Non-Reactive (Nonreactive); Rubella IgG Reactive (Nonreactive); Syphilis Antibodies Non-reactive
== END | disposition home or self-care (01) ==
LOC: WOBLAB 09:23
PROVIDERS: PCP Family Medicine; Visit Provider Obstetrics & Gynecology
DX: Z34.81 Encounter for supervision of other normal pregnancy, first trimester (principal)
CPT/HCPCS: 36415; 81002; 84443; 85025; 86703; 86762; 86780; 86803; 86870; 87086; 87088; 87340

== ENCOUNTER → 2021-11-12 | Outpatient (CLI) | payer OTHER, SELFPAY | END | disposition home or self-care (01) | PROVIDERS: PCP Family Medicine; Visit Provider Student in an Organized Health Care Education/Training Program | DX: R76.0 Raised antibody titer (principal) ==

== ENCOUNTER → 2022-02-07 | Outpatient (CLI) | payer OTHER, SELFPAY ==
[2022-02-07 11:42] LABS: Absolute Lymphocyte Count 1.57 X10^3/uL (0.83-4.51); Absolute Neutrophil Count 6.4 X10^3/uL (2.0-7.7); Basophil# 0.03 X10^3/uL; Basophil% 0.3 % (0-1); Eosinophil# 0.07 X10^3/uL; Eosinophils% 0.8 % (0-5); Hematocrit 37.6 % (37-47); Hemoglobin 12.4 g/dL (12.0-15.0); Lymphocyte # 1.57 X10^3/ul (0.83-4.51); Lymphocyte % 18.2 % (19-41); Mean Corpuscular Hgb 28.4 pg (27.0-32.0); Mean Platelet Vol. 9.4 fl (6.2-12.0); Monocyte# 0.41 X10^3/uL; Monocyte% 4.8 % (0-10); NRBC Flagged by Analyzer 0 % (0-5); Neutrophil # 6.43 X10^3/uL (2.7-7.7); Neutrophil % 74.6 % (47-70); Platelet Count 279 K/mm3 (150-450); RBC Distribution Width CV 13.3 % (11.6-14.6); RBC Distribution Width SD 41.1 fl (35.1-43.9); Red Blood Count 4.37 M/mm3 (4.2-5.4); White Blood Count 8.6 K/mm3 (4.4-11.0)
[2022-02-07 12:32] LABS: Glucose Challenge Gest 1H 50g 113 mg/dL (70-140)
== END | disposition home or self-care (01) ==
PROVIDERS: Student in an Organized Health Care Education/Training Program; PCP Family Medicine; Visit Provider Obstetrics & Gynecology
DX: Z34.82 Encounter for supervision of other normal pregnancy, second trimester (principal)
CPT/HCPCS: 36415; 82950; 85025

== ENCOUNTER → 2022-03-07 | Outpatient (CLI) | payer OTHER, SELFPAY ==
--- NOTE | 2022-03-07 07:44 | ECHOD_ITS ---
Version 2 Reason For Study: Tachycardia Procedure This was a 2D Doppler, Color Flow transthoracic echocardiogram. Technically difficult study. No Definity used due to . Exam performed in department. Left Ventricle Normal LV size. Left ventricular systolic function is normal. The estimated ejection fraction is 55 %. No regional wall motion abnormalities noted. Right Ventricle Normal RV size. Normal systolic function. Atria Normal left atrium. Normal right atrium. Mitral Valve Normal mitral valve. Tricuspid Valve Normal tricuspid valve. Mild (1+) tricuspid valve insufficiency. Pulmonary artery systolic pressure is 28 mmHg. Aortic Valve Trisinus/trileaflet aortic valve. Pulmonic Valve Normal pulmonic valve. Great Vessels Normal aortic root. The pulmonary artery is normal size. Normal inferior vena cava. Pericardium/Pleural No pericardial effusion. MMode/2D Measurements & Calculations LVIDd: 4.8 cm IVSd: 1.2 cm Ao root diam: 3.1 cm LVIDs: 3.3 cm LVPWd: 1.2 cm LA dimension: 4.2 cm RVDd: 2.6 cm FS: 30.4 % LAV(MOD-bp): 59.9 ml LA A4 area: 17.8 cm2 RA A4 area: 12.0 cm2 LAV(MOD-bp) Indexed: 24.4 ml/m2 LAV(MOD-sp2): 56.0 ml LAV(MOD-sp4): 47.3 ml Time Measurements MV dec time: 0.29 sec Doppler Measurements & Calculations MV E max aleks: 105.4 cm/sec Lat Peak E' Aleks: 16.6 cm/sec Med Peak E' Aleks: 12.0 cm/sec MV A max aleks: 71.2 cm/sec E/E' lat: 6.4 E/E' med: 8.8 MV E/A: 1.5 MV V2 max: 83.4 cm/sec MV P1/2t max aleks: 84.2 cm/sec Ao V2 max: 135.3 cm/sec MV max P.8 mmHg MV P1/2t: 62.9 msec Ao max P.4 mmHg MV V2 mean: 61.0 cm/sec MV dec slope: 391.6 cm/sec2 MV mean P.6 mmHg MVA(P1/2t): 3.5 cm2 MV V2 VTI: 16.1 cm LV V1 max: 112.7 cm/sec PA V2 max: 127.7 cm/sec TR max aleks: 250.1 cm/sec LV V1 max P.1 mmHg TR max P.0 mmHg ECHO/Echo Complete Interpretation Summary Normal LV size. Left ventricular systolic function is normal. The estimated ejection fraction is 55 %. Pulmonary artery systolic pressure is 28 mmHg. Structurally normal valves. Ordering Physician: Ever Upton Referring Physician: Ever Upton Performed By: Ramakrishna Reece RCS
--- NOTE | 2022-03-07 07:44 | EKG12_ITS ---
Test Reason : TACHY,PREG 24WK Blood Pressure : / mmHG Vent. Rate : 098 BPM Atrial Rate : 098 BPM P-R Int : 124 ms QRS Dur : 084 ms QT Int : 354 ms P-R-T Axes : 074 020 044 degrees QTc Int : 451 ms Normal sinus rhythm Normal ECG Confirmed by SLIM DAMON, TAYA ([id number]), electronic news gathering editor SOSA BALL ([id number]) on 03/07/2022 2:07:44 P M Referred By: Ever Upton Confirmed By:MATEO SMALLS MD
== END | disposition home or self-care (01) ==
PROVIDERS: PCP Family Medicine; Referring Provider Obstetrics & Gynecology; Visit Provider Obstetrics & Gynecology
DX: R00.0 Tachycardia, unspecified (principal)
CPT/HCPCS: 93005; 93306

== ENCOUNTER → 2022-03-07 | Outpatient (CLI) | payer OTHER, SELFPAY | END | disposition home or self-care (01) | LOC: LABSPEC 16:06 | PROVIDERS: PCP Family Medicine; Visit Provider Obstetrics & Gynecology | DX: Z34.83 Encounter for supervision of other normal pregnancy, third trimester (principal) | CPT/HCPCS: 36415; 86850 ==

== ENCOUNTER → 2022-04-05 | Outpatient (CLI) | payer OTHER, SELFPAY ==
[2022-04-05 09:43] LABS: Absolute Lymphocyte Count 0.99 X10^3/uL (0.83-4.51); Absolute Neutrophil Count 8.9 X10^3/uL (2.0-7.7); Basophil# 0.03 X10^3/uL; Basophil% 0.3 % (0-1); Eosinophil# 0.07 X10^3/uL; Eosinophils% 0.7 % (0-5); Hematocrit 39.4 % (37-47); Hemoglobin 13.1 g/dL (12.0-15.0); Lymphocyte # 0.99 X10^3/ul (0.83-4.51); Lymphocyte % 9.3 % (19-41); Mean Corp Hgb Conc 33.2 g/dL (32-36); Mean Corpuscular Hgb 28.2 pg (27.0-32.0); Mean Corpuscular Volume 84.7 fL (81-99); Mean Platelet Vol. 9.1 fl (6.2-12.0); Monocyte# 0.56 X10^3/uL; Monocyte% 5.3 % (0-10); NRBC Flagged by Analyzer 0 % (0-5); Neutrophil # 8.85 X10^3/uL (2.7-7.7); Neutrophil % 83.1 % (47-70); Platelet Count 238 K/mm3 (150-450); RBC Distribution Width CV 13.6 % (11.6-14.6); RBC Distribution Width SD 41.5 fl (35.1-43.9); Red Blood Count 4.65 M/mm3 (4.2-5.4); White Blood Count 10.6 K/mm3 (4.4-11.0)
[2022-04-05 10:16] LABS: ALB/GLOB Ratio 0.7 RATIO (0.9-2.4); AST(SGOT) 16 U/L (15-37); Alanine Aminotransfer ALT/SGPT 17 U/L (13-56); Albumin, Serum 2.7 g/dL (3.2-5.0); Alkaline Phosphatase 84 U/L (45-117); Anion Gap 7 (5-15); BUN 6 mg/dL (7-18); BUN/Creat Ratio 10.5 RATIO (10-20); Chloride 106 mmol/L (98-107); Creatinine, Serum 0.57 mg/dL (0.55-1.02); EST Glomerular Filtration Rate 129 mL/min (>60); Est Glom Filt Rate - Afr Amer 156 mL/min (>60); Globulin 3.7 g/dL (2.2-4.2); Glucose 116 mg/dL (74-106); LDH 160 U/L (84-246); Potassium 3.9 mmol/L (3.5-5.1); Protein, Total 6.4 g/dL (6.4-8.2); Sodium Level 137 mmol/L (136-145)
[2022-04-05 10:22] LABS: Protein, Urine (Random) 15.8 mg/dL (<11.9); Protein:Creat Ratio 172 mg/g CRE (0-200)
== END | disposition home or self-care (01) ==
LOC: WOBLAB 09:15
PROVIDERS: PCP Family Medicine; Visit Provider Obstetrics & Gynecology
DX: O13.3 Gestational [pregnancy-induced] hypertension without significant proteinuria, third trimester (principal)
CPT/HCPCS: 36415; 80053; 82570; 83615; 84156; 85025; 87086; 87088

== ENCOUNTER 2022-05-01 18:33 | Inpatient (IN) | payer OTHER, SELFPAY ==
[2022-05-01] VITALS (26 sets, daily range): BP systolic 115–174; BP diastolic 63–93; PULSE 76–136; RESP 14–20; TEMP 36.9–37.9; O2SAT 94–100; BMI 45.4
[2022-05-01 17:48] LABS: Mucous, Urine 0 SEEN /hpf (<or=2+); Red Blood Cells-Urine 0 SEEN /hpf (0-5); Squamous Epithelial Cells - UA 0 SEEN /hpf (5-10); White Blood Cells 0 SEEN /hpf (0-5)
[2022-05-01 17:51] LABS: Hematocrit 39.3 % (37-47); Hemoglobin 13.6 g/dL (12.0-15.0); Mean Corp Hgb Conc 34.6 g/dL (32-36); Mean Corpuscular Hgb 29.1 pg (27.0-32.0); Mean Corpuscular Volume 84.2 fL (81-99); Mean Platelet Vol. 9.6 fl (6.2-12.0); Platelet Count 250 K/mm3 (150-450); RBC Distribution Width CV 13.9 % (11.6-14.6); RBC Distribution Width SD 42.5 fl (35.1-43.9); Red Blood Count 4.67 M/mm3 (4.2-5.4); White Blood Count 12.2 K/mm3 (4.4-11.0)
[2022-05-01 17:55] LABS: Color, Urine Yellow (Yellow); Glucose, Dipstick Normal (Normal); Ketone-Dipstick 15 mg/dl (Negative); Leukocyte Esterase-Dipstick Negative /ul (Negative); Nitrite-Dipstick Negative (Negative); Occult Blood-Urine Negative /ul (Negative); Protein-Dipstick Negative (Negative); Specific Gravity, Urine 1.005 (1.002-1.030); Urine Bilirubin Dipstick Negative (Negative); Urine Clarity Clear (Clear); Urine Urobilinogen 1 mg/dl (Normal)
[2022-05-01 18:09] LABS: Protein, Urine (Random) 13.1 mg/dL (<11.9); Protein:Creat Ratio 231 mg/g CRE (0-200)
[2022-05-01 18:12] LABS: Bacteria RARE /hpf (None Seen)
[2022-05-01 18:22] LABS: ALB/GLOB Ratio 0.7 RATIO (0.9-2.4); AST(SGOT) 43 U/L (15-37); Alanine Aminotransfer ALT/SGPT 20 U/L (13-56); Albumin, Serum 2.8 g/dL (3.2-5.0); Alkaline Phosphatase 109 U/L (45-117); Anion Gap 7 (5-15); BUN 8 mg/dL (7-18); BUN/Creat Ratio 13.3 RATIO (10-20); Calcium,Total 9.3 mg/dL (8.5-10.1); Chloride 106 mmol/L (98-107); EST Glomerular Filtration Rate 121 mL/min (>60); Est Glom Filt Rate - Afr Amer 146 mL/min (>60); Estimated Creatinine Clearance 142.87 ml/min; Globulin 4.3 g/dL (2.2-4.2); Glucose 86 mg/dL (74-106); LDH 346 U/L (84-246); Potassium 4.9 mmol/L (3.5-5.1); Protein, Total 7.1 g/dL (6.4-8.2); Sodium Level 136 mmol/L (136-145)
--- NOTE | 2022-05-01 18:40 | PCM.HP.BLA ---
History and Physical Date of Admission: 05/01/22 Chief complaint: Headache and History present illness: 32-year-old G4, P2 at 36 weeks and 1 day with ЕКАТЕРИНА 05/28/2020 arrives with headache with visual changes. Denies chest pain, shortness of breath, nausea vomit, right upper quadrant pain. Patient states good movement. is complicated now by preeclampsia with severe features Obstetrical history: G1: Primary section 40 weeks 9 pounds 1 ounce male G2: Repeat section 37 weeks 9 pounds 12 ounces male G3: SAB G4: Current Past medical history: None Medications: None Past surgical history: section x2, foot surgery, tonsils and adenoids, cholecystectomy Allergies: Naproxen, codeine Social history: Denies smoking, alcohol use, drug use Family history: Denies history DVT or PE Review of systems: Besides above pertinent positives a full review of systems was performed and found to be negative Physical exam: Vitals: White blood cell count 12.2 hemoglobin 13.6 hematocrit 39.3% platelets 250. Sodium 136 potassium 4.9. Creatinine 0.6. Total bilirubin 0.8. AST 43 ALT 20. LDH 346. Urine protein creatinine ratio 0.23 Assessment plan: 32-year-old G4, P2 at 36 weeks and 1 day seen in office and noted to have headache unresolved with Tylenol and visual changes. Mildly elevated LFTs, negative proteinuria. Severe range blood pressures x2 but not persistent. Based on headache unresolved with Tylenol and visual changes diagnosis of preeclampsia with severe features. For magnesium 4 g bolus to run at 2 g an hour. Magnesium checks every 6 hours. [place] now. For repeat section now. Educated patient on findings discussed diagnosis of severe preeclampsia and treatment with magnesium. Educated patient on need for delivery now, educated patient on 36-week delivery. Patient states understanding wish to proceed. Surgery team to be called. Reviewed case with assistant men's soccer coach
[2022-05-01] MEDS: 0.9% Saline Lock 10 ML Syringe IV ×2 (19:10→23:36)
[2022-05-01] MEDS: Lactated Ringers 1,000 ML 999 ML IV (19:10)
[2022-05-01] MEDS: Magnesium Sulfate 4gm/100mL 4 GM/100 ML IV.SOLN. IV (19:16)
[2022-05-01] MEDS: Betamethasone/Betamethasone 30 MG/5 ML Vial 12 MG IM (19:17)
[2022-05-01] MEDS: Acetaminophen 500 MG Tablet 1000 MG PO (19:22)
[2022-05-01] MEDS: Sodium Citrate/Citric Acid 30 ML UDC PO (19:22)
[2022-05-01] MEDS: Magnesium Sulfate 20 GM/500 ML BAG IV (19:35)
[2022-05-01 21:16] LABS: Group B Strep DNA By PCR Negative (Negative); Internal Control PASS; Probe Check PASS; Specimen Processing Control PASS
--- NOTE | 2022-05-01 21:47 | OP.PCM_ITS ---
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 Normal uterus, tubes, and ovaries. Moderate amount of scar tissue Consent: Patient arrived with persistent headache with visual changes diagnosed with preeclampsia with severe features for repeat section Via Pfannenstiel incision. Patient understands the risks of the procedure include but are not limited to visceral or vascular injury, prolonged hospitalization, blood loss and need for transfusion, reoperation. Patient state understanding and wished to proceed. All questions were answered and consent was signed. Procedure: Patient was brought back to the OR where general anesthesia was found to be adequate. 3 g of Ancef and 500 mg of azithromycin were given for infection prophylaxis. Patient was prepared and draped in a supine position with leftward tilt. A Pfannenstiel incision was made at the skin with a scalpel. The incision carried down the fascia with a scalpel. The fascia was excised and extended laterally. Superior aspect of the fascia was grasped and the underlying rectus muscle was dissected off sharply. Rectus muscle was dissected the midline down to the level of the pubic symphysis. Preperitoneal fatty tissue was noted and peritoneum was entered bluntly. Peritoneum was extended superiorly and inferiorly with good visualization of bladder. Bladder blade was inserted and vesicouterine peritoneum was identified. Low transverse hyste rotomy was made. Hand was placed into the incision and gentle fundal pressure was applied once the head was brought into the incision and the bladder blade was removed. Head and shoulders were delivered with ease. Cord was clamped and cut. Baby handed off to nursing. Placenta was delivered via cord traction and fundal massage. IV oxytocin was initiated in order to facilitate uterine contractions. Uterus was exteriorized and wiped out with dry laparotomy sponge in order to remove remaining placental membranes. Uterus was closed in a continuous running fashion. Good hemostasis was noted. Uterus was placed back in the abdominal cavity and the incision was reinspected, good hemostasis was noted. Fascia was closed in a continuous running fashion with PDS suture. Subcutaneous irrigation was performed and good hemostasis was noted. Skin was closed in a subcuticular fashion. Good hemostasis was noted. All counts were correct x2. Patient tolerated procedure well and was brought to recovery in stable condition.
[2022-05-01] MEDS: Oxytocin 15 Units/NS 250ml 15 UNITS/250 ML IV.SOLN 83 UNITS IV (22:03)
[2022-05-01] MEDS: DiphenhydrAMINE 25 MG Capsule PO (23:35)
[2022-05-01] MEDS: Ketorolac 30 MG/ML Syringe IV (23:36)
[2022-05-02] VITALS (22 sets, daily range): BP systolic 92–136; BP diastolic 54–81; PULSE 63–85; RESP 14–20; TEMP 36.1–37.4; O2SAT 94–99
[2022-05-02] MEDS: Acetaminophen 500 MG Tablet 1000 MG PO ×4 (01:13→19:54)
[2022-05-02] MEDS: Cefazolin 1 GM/50 ML BAG IV ×2 (04:29→12:33)
[2022-05-02] MEDS: 0.9% Saline Lock 10 ML Syringe IV ×5 (04:29→17:20)
[2022-05-02] MEDS: Ketorolac 30 MG/ML Syringe IV ×3 (05:17→17:19)
[2022-05-02] MEDS: DiphenhydrAMINE 25 MG Capsule PO ×2 (05:36→13:04)
[2022-05-02] MEDS: Magnesium Sulfate 20 GM/500 ML BAG IV ×2 (05:38→13:51)
[2022-05-02 05:50] LABS: Hematocrit 34.2 % (37-47); Hemoglobin 11.4 g/dL (12.0-15.0); Mean Corp Hgb Conc 33.3 g/dL (32-36); Mean Corpuscular Hgb 28.2 pg (27.0-32.0); Mean Corpuscular Volume 84.7 fL (81-99); Mean Platelet Vol. 9.6 fl (6.2-12.0); Platelet Count 257 K/mm3 (150-450); RBC Distribution Width CV 13.6 % (11.6-14.6); RBC Distribution Width SD 42.2 fl (35.1-43.9); Red Blood Count 4.04 M/mm3 (4.2-5.4); White Blood Count 18.3 K/mm3 (4.4-11.0)
[2022-05-02 06:53] LABS: ALB/GLOB Ratio 0.7 RATIO (0.9-2.4); AST(SGOT) 19 U/L (15-37); Alanine Aminotransfer ALT/SGPT 19 U/L (13-56); Albumin, Serum 2.3 g/dL (3.2-5.0); Alkaline Phosphatase 95 U/L (45-117); Anion Gap 9 (5-15); BUN 7 mg/dL (7-18); BUN/Creat Ratio 13.3 RATIO (10-20); Calcium,Total 8.1 mg/dL (8.5-10.1); Chloride 104 mmol/L (98-107); Creatinine, Serum 0.53 mg/dL (0.55-1.02); EST Glomerular Filtration Rate 141 mL/min (>60); Est Glom Filt Rate - Afr Amer 170 mL/min (>60); Estimated Creatinine Clearance 161.74 ml/min; Globulin 3.3 g/dL (2.2-4.2); Glucose 152 mg/dL (74-106); LDH 188 U/L (84-246); Potassium 4.2 mmol/L (3.5-5.1); Protein, Total 5.6 g/dL (6.4-8.2); Sodium Level 134 mmol/L (136-145)
--- NOTE | 2022-05-02 07:15 | NURSING ---
bedside report given to Perry Clay RN who is assuming care of pt at this time
--- NOTE | 2022-05-02 07:57 | PN.OBGYN_ITS ---
Subjective Subjective No overnight complaints. Denies headache, visual changes, chest pain, shortness of breath, nausea vomit, right upper quadrant pain. Objective Data Objective Data Vital Signs: Vital Signs Temp Pulse Resp BP Pulse Ox O2 Del Method 99.1 F 75 18 112/61 94 Room Air 05/02/22 06:49 05/02/22 06:49 05/02/22 06:49 05/02/22 06:49 05/02/22 06:49 05/02/22 06:49 Oxygen Delivery Method Room Air Weight: 316 lb 9.341 oz Body Mass Index (BMI) 45.4 Intake & Output: Intake and Output for Last 24 Hours 04/30/22 05/01/22 05/02/22 23:59 23:59 23:59 Intake Total 2532.5 / 2532.5 1186.67 / 1186.67 Output Total 250 / 250 200 / 200 Balance 2282.5 / 2282.5 986.67 / 986.67 Lab / Micro Data Result Diagrams: 05/02/22 05:27 05/02/22 05:27 Labs: Laboratory Results - last 24 hr 05/01/22 17:30: WBC 12.2 H, RBC 4.67, Hgb 13.6, Hct 39.3, MCV 84.2, MCH 29.1, MCHC 34.6, RDW Std Deviation 42.5, RDW Coeff of Mariya 13.9, Plt Count 250, MPV 9.6 05/01/22 17:30: Urine Color Yellow, Urine Clarity Clear, Urine pH 7.0, Ur Specific [place] 1.005, Urine Protein Negative, Urine Glucose (UA) Normal, Urine Ketones 15 H, Urine Occult Blood Negative, Urine Nitrite Negative, Urine Bili rivas Negative, Urine Urobilinogen 1 H, Ur Leukocyte Esterase Negative, Urine RBC 0 SEEN, Urine WBC 0 SEEN, Ur Squamous Epith Cells 0 SEEN, Urine Bacteria RARE, Urine Mucus 0 SEEN 05/01/22 17:30: Sodium 136, Potassium 4.9, Chloride 106, Carbon Dioxide 23.0, Anion Gap 7, BUN 8, Creatinine 0.60, Estim Creat Clear Calc 142.87, Est GFR (MDRD) Af Amer 146, Est GFR (MDRD) Non-Af 121, BUN/Creatinine Ratio 13.3, Glucose 86, Calcium 9.3, Total Bilirubin 0.80, AST 43 H, ALT 20, Alkaline Phosphatase 109, Lactate Dehydrogenase 346 H, Total Protein 7.1, Albumin 2.8 L, Globulin 4.3 H, Albumin/Globulin Ratio 0.7 L 05/01/22 17:30: U Random Total Protein 13.1 H, Urine Creatinine 56.60, Pro tein/Creatinin Ratio 231 H 05/01/22 17:30: Blood Type B NEGATIVE, Antibody Screen Not Reportable 05/01/22 17:30: Blood Type B NEGATIVE, Antibody Screen NEGATIVE 05/01/22 19:46: Group B Strep DNA Negative, Specimen Comment Not Reportable 05/02/22 00:10: Screen NEGATIVE, Baby's Blood Type O POSITIVE, Baby's AMY NEGATIVE 05/02/22 05:27: WBC 18.3 H, RBC 4.04 L, Hgb 11.4 L, Hct 34.2 L, MCV 84.7, MCH 28.2, MCHC 33.3, RDW Std Deviation 42.2, RDW Coeff of Mariya 13.6, Plt Count 257, MPV 9.6 05/02/22 05:27: Sodium 134 L, Potassium 4.2, Chloride 104, Carbon Dioxide 21.0, Anion Gap 9, BUN 7, Creatinine 0.53 L, Estim Creat Clear Calc 161.74, Est GFR (MDRD) Af Amer 170, Est GFR (MDRD) Non-Af 141, BUN/Creatinine Ratio 13.3, Glucose 152 H, Calcium 8.1 L, Total Bilirubin 0.60, AST 19, ALT 19, Alkaline Phosphatase 95, Lactate Dehydrogenase 188, Total Protein 5.6 L, Albumin 2.3 L, Globulin 3.3, Albumin/Globulin Ratio 0.7 L Physical Exam Const alert, oriented x3, no apparent distress, average body habitus, healthy appearing and well nourished HEENT normocephalic and moist oral mucous membranes Eyes PERRL Neck full ROM Resp normal respiratory effort, no retractions and no use of accessory muscles GI GI Narrative: Soft, nontender, bandage clean dry and intact Extremity normal to inspection, full ROM and no clubbing, cyanosis or edema Neuro moves all extremities and no focal motor deficits Psych mental status grossly normal, affect normal, speech normal and activity/motor behavior normal Assessment & Plan (1) delivery delivered: PLAN: Postop day 1 status post repeat section at 36 weeks for preeclampsia with severe features based on headache with visual changes. Preeclampsia with severe features to continue magnesium until 24 hours after delivery. Blood pressures well controlled on no medication.HELLP labs within normal limits. Patient asymptomatic. We will continue to monitor, discussed need to monitor for several days. Patient states understanding
[2022-05-02 08:04] LABS: Magnesium 4.7 mg/dL (1.6-2.6)
[2022-05-02] MEDS: Lactated Ringers 1,000 ML 50 ML IV (08:59)
--- NOTE | 2022-05-02 09:17 | NURSING ---
Call placed to Dr. Upton's office and left a message with the nurse that pt. Magnesium level at 0527 was 4.7 and BP at 0800 is 117/59. Nurse called back and gave orders of titrating magnesium at 2.5 to redraw magnesium levels at 1500 then Q6 after that level. This Nurse titrated magnesium at 0854 with Sheila Macdonald RN verifying. Notify Dr. Upton of levels that are not in the range of 4.8-8.4.
[2022-05-02] MEDS: Enoxaparin 40 MG/0.4 ML Syringe SC ×2 (10:23→23:10)
[2022-05-02] MEDS: Senna/Docusate Sodium 1 Tablet PO (10:23)
[2022-05-02 16:04] LABS: Magnesium 5.7 mg/dL (1.6-2.6)
--- NOTE | 2022-05-02 16:18 | NURSING ---
Call placed to Dr. Upton office and left message with nurse Bryanna on pt. Mag Level of 5.7.
--- NOTE | 2022-05-02 16:23 | NURSING ---
Bryanna TOVAR from Dr. Nguyen office called and said Marielos Upton said magnesium level of 5.7 is good and to keep at the same magnesium level of 2.5
--- NOTE | 2022-05-02 19:18 | NURSING ---
report given to [place] TOVAR
[2022-05-02] MEDS: Ibuprofen 600 MG Tablet PO (23:11)
[2022-05-03] MEDS: Acetaminophen 500 MG Tablet 1000 MG PO ×4 (01:29→20:11)
[2022-05-03 04:40] VITALS: BP 121/76; PULSE 74; RESP 16; TEMP 36.6; O2SAT 98
[2022-05-03] MEDS: Ibuprofen 600 MG Tablet PO ×3 (05:35→18:00)
[2022-05-03 08:14] VITALS: BP 128/77; PULSE 79; RESP 18; TEMP 36.6; O2SAT 99
--- NOTE | 2022-05-03 08:18 | PN.OBGYN_ITS ---
Subjective Subjective Pain controlled. Lochia minimal. No headache or vision changes. Neuro lower quadrant pain. Objective Data Objective Data Vital Signs: Vital Signs Temp Pulse Resp BP Pulse Ox O2 Del Method 97.9 F 79 18 128/77 H 99 Room Air 05/03/22 08:14 05/03/22 08:14 05/03/22 08:14 05/03/22 08:14 05/03/22 08:14 05/03/22 08:14 Oxygen Delivery Method Room Air Weight: 143.6 kg Body Mass Index (BMI) 45.4 Intake & Output: Intake and Output for Last 24 Hours 05/01/22 05/02/22 05/03/22 23:59 23:59 23:59 Intake Total 2532.5 / 2532.5 3432.50 / 3432.50 Output Total 250 / 250 1350 / 1350 Balance 2282.5 / 2282.5 2082.50 / 2082.50 Lab / Micro Data Result Diagrams: 05/02/22 05:27 05/02/22 05:27 Labs: Laboratory Results - last 24 hr 05/02/22 15:15: Magnesium 5.7 H* Physical Exam Const alert, oriented x3 and no apparent distress HEENT normocephalic Head and Scalp: atraumatic Neck full ROM Resp normal respiratory effort Cardio regular rate GI normal to inspection, nondistended, normoactive bowel sounds GI Narrative: Uterus 2 cm below umbilicus, dressing clean and dry Back/Spine normal ROM Extremity normal to inspection Extremity Narrative: +1 pedal edema Neuro no focal motor deficits and no sensory deficits noted Psych mental status grossly normal and affect normal Assessment & Plan (1) delivery delivered: PLAN: Postop day 2 status post repeat section. Complicated by preeclampsia with severe features based on elevated blood pressures. Blood pressures have been within normal limits since being off magnesium sulfate. Sta tus post 24 hours of magnesium sulfate, turned off last night around 2100. Labs yesterday were stable. Asymptomatic. Baby at [facility], now on CPAP. Discussed discharge plan. Recommend discharge home postop day 3, tomorrow. As patient has not yet been off of magnesium for at least 24 hours. Need to ensure stability of blood pressures. If continue to be stable, will discharge home tomorrow. Patient expresses understanding. Emotional support provided. (2) Severe pre-eclampsia:
[2022-05-03] MEDS: Enoxaparin 40 MG/0.4 ML Syringe SC ×2 (09:48→21:11)
[2022-05-03] MEDS: Senna/Docusate Sodium 1 Tablet PO (09:49)
[2022-05-03 11:23] VITALS: BP 131/72; PULSE 87; RESP 18; TEMP 36.9
[2022-05-03 16:55] VITALS: BP 122/62; PULSE 67; RESP 18; TEMP 37.2
[2022-05-03 20:07] VITALS: BP 127/62; PULSE 59; RESP 18; TEMP 37.2
[2022-05-03] MEDS: 0.9% Saline Lock 10 ML Syringe IV (20:16)
[2022-05-04] MEDS: Ibuprofen 600 MG Tablet PO ×2 (01:11→06:50)
[2022-05-04 01:12] VITALS: BP 126/64; PULSE 57; RESP 16; TEMP 37
[2022-05-04] MEDS: Acetaminophen 500 MG Tablet 1000 MG PO (02:41)
--- NOTE | 2022-05-04 06:15 | PCM.PN.OB ---
Subjective Subjective Pain controlled, lochia minimal. Objective Data Objective Data Vital Signs: Vital Signs Temp Pulse Resp BP Pulse Ox O2 Del Method 98.6 F 57 L 16 126/64 H 99 Room Air 05/04/22 01:12 05/04/22 01:12 05/04/22 01:12 05/04/22 01:12 05/03/22 08:14 05/04/22 01:12 Oxygen Delivery Method Room Air Weight: 143.6 kg Body Mass Index (BMI) 45.4 Intake & Output: Intake and Output for Last 24 Hours 05/02/22 05/03/22 05/04/22 23:59 23:59 23:59 Intake Total 3432.50 / 3432.50 Output Total 1350 / 1350 Balance 2082.50 / 2082.50 Lab / Micro Data Result Diagrams: 05/02/22 05:27 05/02/22 05:27 Physical Exam Const alert, oriented x3 and no apparent distress HEENT normocephalic Head and Scalp: atraumatic Neck full ROM Resp normal respiratory effort Cardio regular rate GI normal to inspection, nondistended, normoactive bowel sounds GI Narrative: Uterus 2 cm below umbilicus, dressing clean and dry Back/Spine normal ROM Extremity normal to inspection Extremity Narrative: +1 pedal edema Neuro no focal motor deficits and no sensory deficits noted Psych mental status grossly normal and affect normal Assessment & Plan (1) Severe pre-eclampsia: (2) delivery delivered: PLAN: Postop day 3 status post repeat section. Complicated by preeclampsia with severe features based on elevated blood pressures. Blood pressures remain stable after discontinuing magnesium sulfate. Asymptomatic. Stable for discharge home today. To call or return with headache unresolved with ibuprofen or Tylenol, visual disturbances, chest pain or shortness of breath, right upper quadrant pain, incisional erythema/drainage. Discharge home.
--- NOTE | 2022-05-04 06:17 | DCINST_ITS ---
Discharge Instructions Diet Discharge Diet: No restrictions Activity Discharge Activity: Return to Normal Activity and May Shower May resume sexual activity in: 4-6 weeks Weight Bearing Status: Weight bearing as tolerated Lifting Restrictions: No greater than 25 pounds Dressing / Incision Call your doctor if your incision/area has: Continuous Slow Oozing, Increased Redness and Swelling at the incision site Call your doctor if you observe: Fever of 101 or Higher, Change in Color, Inability to urinate, Using more than 1 pad per hour, Shortness of breath, Dizziness, Swelling in the ankles, Chest pain and Calf discomfort Remove Dressing in: 1 week Cleanse incision/area with: Soap & Water and Keep Dressing Clean & Dry Follow Up Care Please Follow Up With: Ever Upton MD When: 1 week post op and 4- 6-week visit Test Results: Test results from this visit will be discussed in further detail at your follow- up appointment, if applicable. Discharge Plan Admission Admit Date/Time: 05/01/22 18:33 Primary Reason for Your Visit: section Attending Provider: Ever Upton Primary Care Provider: Alberto Disla Discharge Orders/Prescriptions Prescriptions: No Action Prenatabs FA 1 TABLET tablet 1 tab PO DAILY Referrals / Follow Up: Alberto Disla MD [Primary Care Provider] - Disposition Disposition (needs filled in before D/C Order can be placed): Home, Self Care
--- NOTE | 2022-05-04 06:17 | PCM.DC.SUM ---
Providers Date of Admission: 05/01/22 Primary Care Physician: Dr. Alberto Disla MD Reason For Visit: RULE OUT PRE E Diagnosis Discharge Diagnosis (1) Severe pre-eclampsia: Status: Acute Code(s): O14.10 - Severe pre-eclampsia, unspecified trimester (2) delivery delivered: Status: Acute Code(s): O82 - Encounter for delivery without indication Plan: Postop day 3 status post repeat section. Complicated by preeclampsia with severe features based on elevated blood pressures. Blood pressures remain stable after discontinuing magnesium sulfate. Asymptomatic. Stable for discharge home today. Medications at Discharge Home Medications vits,calcium no.78-iron fumarate-folic acid 29 mg-1 mg tablet (Prenatabs FA) 1 tab PO DAILY 04/20/13 Hospital Course Operations section Summary of Care Provided Hospital Course: Patient admitted for repeat section for severe preeclampsia. Patient had intraoperative hypoxia and was placed under general anesthesia for section. Patient recovered with supportive care from anesthesia. She received 24 hours of magnesium sulfate. Blood pressures are stable after this was completed. Asymptomatic. Stable for discharge home on postop day 3. Physical Exam Const alert, oriented x3 and no apparent distress HEENT normocephalic Head and Scalp: atraumatic Neck full ROM Resp normal respiratory effort Cardio regular rate GI normal to inspection, nondistended, normoactive bowel sounds GI Narrative: Uterus 2 cm below umbilicus, dressing clean and dry Back/Spine normal ROM Extremity normal to inspection Extremity Narrative: +1 pedal edema Neuro no focal motor deficits and no sensory deficits noted Psych mental status grossly normal and affect normal Weight / BMI Weight Weight: 143.6 kg Body Mass Index (BMI) 45.4 ABG / Lab / Microbiology Data Result Diagrams: 05/02/22 05:27 05/02/22 05:27 D/C Instructions Discharge Diet: No restrictions May resume sexual activity in: 4-6 weeks Weight Bearing Status: Weight bearing as tolerated Call your doctor if your incision/area has: Continuous Slow Oozing, Increased Redness and Swelling at the incision site Call your doctor if you observe: Fever of 101 or Higher, Change in Color, Inability to urinate, Using more than 1 pad per hour, Shortness of breath, Dizziness, Swelling in the ankles, Chest pain and Calf discomfort Cleanse incision/area with: Soap & Water and Keep Dressing Clean & Dry Please Follow Up With: Ever Upton MD When: 1 week post op and 4- 6-week visit Meaningful Use Info Meaningful Use Diagnoses (Choose all that apply): None applicable Discharge Plan Admission Admit Date/Time: 05/01/22 18:33 Primary Reason for Your Visit: section Attending Provider: Ever Upton Primary Care Provider: Alberto Disla Discharge Orders/Prescriptions Prescriptions: No Action Prenatabs FA 1 TABLET tablet 1 tab PO DAILY Referrals / Follow Up: Alberto Disla MD [Primary Care Provider] - Disposition Disposition (needs filled in before D/C Order can be placed): Home, Self Care
[2022-05-04 07:04] VITALS: BP 126/78; PULSE 63; RESP 16; TEMP 36.4
== END 2022-05-04 08:00 | disposition home or self-care (01) | DRG 788 ==
LOC: WP 21:54 → WPOUT 05-02 10:20
PROVIDERS: Admitting Provider Obstetrics & Gynecology; PCP Family Medicine; Visit Provider Obstetrics & Gynecology
DX: O34.211 Maternal care for low transverse scar from previous cesarean delivery (principal); O14.14 Severe pre-eclampsia complicating childbirth; Z37.0 Single live birth; Z3A.36 36 weeks gestation of pregnancy
CPT/HCPCS: 59025; 59050; 80053; 81001; 82570; 83615; 83735; 84156; 85027; 85461; 86850; 86900; 86901; 87077; 87081; 87653; 99218; J7120; A4216; G0378; J0702; J2790

== ENCOUNTER → 2022-11-12 | Outpatient (CLI) | payer OTHER, SELFPAY ==
[2022-11-12 10:34] LABS: Absolute Lymphocyte Count 1.96 X10^3/uL (0.83-4.51); Absolute Neutrophil Count 2.3 X10^3/uL (2.0-7.7); Basophil# 0.04 X10^3/uL; Basophil% 0.8 % (0-1); Eosinophil# 0.17 X10^3/uL; Eosinophils% 3.5 % (0-5); Hematocrit 41.8 % (37-47); Hemoglobin 14.1 g/dL (12.0-15.0); Lymphocyte # 1.96 X10^3/ul (0.83-4.51); Lymphocyte % 40.8 % (19-41); Mean Corp Hgb Conc 33.7 g/dL (32-36); Mean Corpuscular Hgb 27.3 pg (27.0-32.0); Mean Corpuscular Volume 80.9 fL (81-99); Mean Platelet Vol. 9.4 fl (6.2-12.0); Monocyte# 0.27 X10^3/uL; Monocyte% 5.6 % (0-10); NRBC Flagged by Analyzer 0 % (0-5); Neutrophil # 2.33 X10^3/uL (2.7-7.7); Neutrophil % 48.7 % (47-70); Platelet Count 350 K/mm3 (150-450); RBC Distribution Width CV 12.7 % (11.6-14.6); Red Blood Count 5.17 M/mm3 (4.2-5.4); White Blood Count 4.8 K/mm3 (4.4-11.0)
[2022-11-12 10:41] LABS: hCG Titer Quant., Serum < 1 mIU/mL (1-3)
[2022-11-12 11:04] LABS: Hemoglobin A1c 5.5 % (3.8-5.6)
[2022-11-12 11:50] LABS: Estradiol 45.3 pg/mL; Follicle Stimulating Hormone 5.3 mIU/mL; Luteinizing Hormone 7.6 mIU/mL; Prolactin 4.2 ng/mL; T4 Free Direct 0.96 ng/dL (0.76-1.46); Thyroid Stim Hormone (TSH) 0.68 uIU/mL (0.358-3.74)
== END | disposition home or self-care (01) ==
LOC: WOBLAB 09:37
PROVIDERS: PCP Family Medicine; Visit Provider Nurse Practitioner Women's Health
DX: N93.9 Abnormal uterine and vaginal bleeding, unspecified (principal)
CPT/HCPCS: 36415; 82670; 83001; 83002; 83036; 84146; 84439; 84443; 84702; 85025